=== PATIENT | male | born 1950 | race Caucasian/White ===

== ENCOUNTER 2019-05-23 15:33 | Inpatient (IN) | payer MEDICARE, OTHER ==
[~2019-05-23] VITALS: Ht 184.2 cm; Wt 88.3 kg
--- NOTE | 2019-05-23 16:17 | NUR ---
Pt states he has been wanting to kill himself for a couple days. Feels that he completely messed up his life after getting a DUI. States he won't be able to come back from this. patient is cooperative at this time. Patient reluctant to be here but not actively trying to leave.
[2019-05-23] MEDS ORDERED: NO HOME MEDS (16:38)
[2019-05-23 16:51] LABS: BASOPHILS # (AUTO) 0.1 X10'3 (0-0.2); BASOPHILS % (AUTO) 1.2 % (0-1); EOSINOPHILS # (AUTO) 0.2 X10'3 (0-0.9); EOSINOPHILS % (AUTO) 3.7 % (0-6); HEMATOCRIT 45.4 % (42.0-52.0); HEMOGLOBIN 15.8 g/dl (14.0-17.9); LYMPHOCYTES # (AUTO) 1.5 X10'3 (1.1-4.8); LYMPHOCYTES % (AUTO) 28.4 % (21-51); MEAN CORPUSCULAR HEMOGLOBIN 34.5 PG (27.0-31.0); MEAN CORPUSCULAR HGB CONC 34.8 g/dL (33.0-36.5); MEAN CORPUSCULAR VOLUME 99.2 FL (78-98); MEAN PLATELET VOLUME 6.7 FL (7.4-10.4); MONOCYTES # (AUTO) 0.7 X10'3 (0-0.9); MONOCYTES % (AUTO) 14.1 % (2-12); NEUTROPHILS # (AUTO) 2.7 X10'3 (1.8-7.7); NEUTROPHILS % (AUTO) 52.6 % (42-75); PLATELET COUNT 136 X10'3 (140-440); RED BLOOD COUNT 4.58 X10'6 (4.70-6.10); RED CELL DISTRIBUTION WIDTH 12.5 % (11.5-14.5); WHITE BLOOD COUNT 5.2 X10'3 (4.5-11.0)
[2019-05-23 17:04] LABS: ALANINE AMINOTRANSFERASE 41 U/L (12-78); ALBUMIN 3.5 G/DL (3.4-5.0); ALBUMIN/GLOBULIN RATIO 0.8 (1.1-1.5); ALKALINE PHOSPHATASE 77 IU/L (46-116); ANION GAP 9 (8-16); ASPARTATE AMINO TRANSFERASE 47 U/L (10-37); BILIRUBIN,TOTAL 0.8 MG/DL (0.1-1.0); BLOOD UREA NITROGEN 6 MG/DL (7-18); BUN/CREATININE RATIO 9.4 (5.4-32.0); CALCIUM 8.6 MG/DL (8.5-10.1); CHLORIDE 95 MMOL/L (99-107); CREATININE 0.64 MG/DL (0.60-1.10); ETHANOL 0.211 GM/DL (0.0-0.010); GLUCOSE 103 MG/DL (70-104); POTASSIUM 3.9 MMOL/L (3.5-5.1); SODIUM 128 MMOL/L (135-145); TOTAL CARBON DIOXIDE 24.5 MMOL/L (24-32); eGFR > 90 ML/MIN
[2019-05-23 17:20] LABS: URINE AMPHETAMINE SCREEN NEGATIVE (Neg); URINE BARBITUATE SCREEN NEGATIVE (Neg); URINE BENZODIAZEPINES SCREEN NEGATIVE (Neg); URINE CANNABINOID SCREEN NEGATIVE (Neg); URINE COCAINE SCREEN NEGATIVE (Neg); URINE METHADONE SCREEN NEGATIVE (Neg); URINE OPIATE SCREEN NEGATIVE (Neg); URINE PHENCYCLIDINE SCREEN NEGATIVE (Neg)
--- NOTE | 2019-05-23 17:30 | NUR ---
Patient is alseep, also see patient looking up at the ceiling.
--- NOTE | 2019-05-23 18:30 | NUR ---
patient eating dinner, states he does not know why he is here. states he wasn't going to hurt anyone and what he is going to do to himself is his business. Reluctant to be here but calm/cooperative and not actively trying to leave unit.
--- NOTE | 2019-05-23 19:30 | NUR ---
Patient is asleep, resiprations even and unlabored.
--- NOTE | 2019-05-23 21:31 | NUR ---
Assumed care of pt he is laying on his right side, eyes closed regular breathing present, will assess pt, report form previous nurse, no home meds
--- NOTE | 2019-05-23 22:30 | NUR ---
PT APPEARS TO BE SLEEPING, REGULAR BREATHING PRESENT
--- NOTE | 2019-05-23 23:30 | NUR ---
PT APPEARS TO BE ASLEEP, REGULAR BREATHING PRESENT
--- NOTE | 2019-05-23 23:33 | NUR ---
Patient's updated facesheet sent [facility].
--- NOTE | 2019-05-24 00:23 | NUR ---
PT IS SUPINE IN BED EYES CLOSED, APPEARS TO BE ASLEEP, NO S/S OF AGITATION
--- NOTE | 2019-05-24 01:16 | NUR ---
Note meggan in ED - 05/24/19 at 0118 by [email or web address] RCVD NOTE FROM PHARMACY ON NEED FOR PT FAMILY TO BRING IN HER 'HOME MEDS" OR TAKE ORDER OFF THE MAR IT IS A MED ERROR TO NOT GIVE THE MEDICATION
--- NOTE | 2019-05-24 01:25 | NUR ---
PT UP TO THE BATHROOM, NO S/S OF DISTRESS OBSERVED, CALM
[2019-05-24] MEDS ORDERED: haloperidol 5mg tablet PO PRN (01:50)
--- NOTE | 2019-05-24 02:25 | NUR ---
PT IS SUPINE IN BED, EYES CLOSED, APPEARS TO BE ASLEEP, REGULAR BREATHING PRESENT, NO TREMORS
--- NOTE | 2019-05-24 02:52 | NUR ---
PT GOT UP VERY UNSTEADY ON HIS FEET, OFFERED URINAL. HE DID NOT ACCEPT IT, HE WAS ABLE TO MAKE IT INTO THE BATHROOM AND BACK TO BED.
--- NOTE | 2019-05-24 03:35 | NUR ---
PT LAYING ON HIS BACK, REGULAR BREATHING PRESENT APPEARS TO BE ASLEEP
[2019-05-24] MEDS: LORazepam 1 MG tablet PO PRN ×3 (05:41→10:52)
--- NOTE | 2019-05-24 05:43 | NUR ---
PT HAD THE SHAKES, OFFERED ATIVAN, IT TOOK SOME CONVINCING TO GET HIM TO TAKE THE MEDICATION TO HELP HIM, HE WAS CONCERNED WITH THE COST, HE DID TAKE THEM, WAS VERY SHAKEY
--- NOTE | 2019-05-24 08:00 | NUR ---
Pt awake and up to the bathroom very shaky. Ativan given
--- NOTE | 2019-05-24 09:31 | NUR ---
Consulted with Dr Arevalo who ordered librium 75 mg PO once and 1 liter of fluid
[2019-05-24] MEDS ORDERED: chlordiazePOXIDE 25mg capsule PO ONE (09:35)
--- NOTE | 2019-05-24 09:56 | NUR ---
Chris initiated IV
--- NOTE | 2019-05-24 10:14 | NUR ---
pt is awake and has ns fluid running pt is doing alittle better and blood pressure is great. pt is hooked up to vital machine to keep an eye on pts heart since he is detoxing
--- NOTE | 2019-05-24 10:19 | NUR ---
pts heart rate is now at 151
[2019-05-24] MEDS: normal saline 1000ml 1,000 ML IV SCH ×2 (10:24→12:35)
--- NOTE | 2019-05-24 10:49 | NUR ---
brenna showed dr EKG and heart rate was in 160's and is aware of the situation and will evaluate him.
--- NOTE | 2019-05-24 11:05 | NUR ---
did two ekg's on pt pts heart rate is up to 162 the highest and it then drops down to low 90's
--- NOTE | 2019-05-24 11:08 | NUR ---
Notified charge nurse pt pulse continues to climb over 160 and then back to nineties. EKG shows Afib RVR
[2019-05-24 11:38] LABS: BASOPHILS # (AUTO) 0.1 X10'3 (0-0.2); EOSINOPHILS # (AUTO) 0.2 X10'3 (0-0.9); EOSINOPHILS % (AUTO) 3.2 % (0-6); HEMATOCRIT 46.7 % (42.0-52.0); HEMOGLOBIN 16.3 g/dl (14.0-17.9); LYMPHOCYTES # (AUTO) 1.2 X10'3 (1.1-4.8); LYMPHOCYTES % (AUTO) 23.4 % (21-51); MEAN CORPUSCULAR HEMOGLOBIN 34.6 PG (27.0-31.0); MEAN CORPUSCULAR HGB CONC 34.8 g/dL (33.0-36.5); MEAN CORPUSCULAR VOLUME 99.2 FL (78-98); MONOCYTES # (AUTO) 0.9 X10'3 (0-0.9); NEUTROPHILS # (AUTO) 2.8 X10'3 (1.8-7.7); NEUTROPHILS % (AUTO) 55.4 % (42-75); PLATELET COUNT 113 X10'3 (140-440); RED BLOOD COUNT 4.71 X10'6 (4.70-6.10); RED CELL DISTRIBUTION WIDTH 12.6 % (11.5-14.5); WHITE BLOOD COUNT 5.1 X10'3 (4.5-11.0)
[2019-05-24 11:55] LABS: ALBUMIN 3.1 G/DL (3.4-5.0); ANION GAP 8 (8-16); BLOOD UREA NITROGEN 9 MG/DL (7-18); BUN/CREATININE RATIO 12.2 (5.4-32.0); CALCIUM 8.8 MG/DL (8.5-10.1); CHLORIDE 102 MMOL/L (99-107); CREATININE 0.74 MG/DL (0.60-1.10); GLUCOSE 100 MG/DL (70-104); MAGNESIUM 1.6 MG/DL (1.5-2.4); SODIUM 136 MMOL/L (135-145); TOTAL CARBON DIOXIDE 26.1 MMOL/L (24-32); TROPONIN I < 0.04 NG/ML (0.0-0.05); eGFR > 90 ML/MIN
[2019-05-24] MEDS ORDERED: acetaminophen 325mg tablet PO PRN (12:15)
[2019-05-24] MEDS ORDERED: magnesium 2GM in 50ml NS 50 ML IV PRN (12:15)
[2019-05-24] MEDS ORDERED: potassium CL 10mEq/100ml bag 100 ML IV PRN ×2 (12:15)
[2019-05-24] MEDS ORDERED: magnesium 4gm in 100ml NS 100 ML IV PRN (12:15)
[2019-05-24] MEDS ORDERED: magnesium Cl slow-release 64mg tablet PO PRN (12:15)
[2019-05-24] MEDS ORDERED: magnesium hydroxide 30ml (MOM) UD suspension PO PRN (12:15)
[2019-05-24] MEDS ORDERED: thiamine 100mg/ml 2ml inj. IV ONE (12:15)
[2019-05-24] MEDS ORDERED: dextrose 50%-water 50ml dispensing syringe IV PRN (12:15)
[2019-05-24] MEDS ORDERED: mag hydrox/Alum hydrox/simeth 30ml oral suspension PO PRN (12:15)
[2019-05-24] MEDS ORDERED: potassium Cl 20 mEq SR tablet PO PRN (12:15)
[2019-05-24] MEDS: multivitamins, therapeutics tablet PO SCH (12:50)
[2019-05-24] MEDS: thiamine 100mg tablet PO SCH (12:50)
[2019-05-24] MEDS: folic acid 1mg tablet PO SCH (12:50)
[2019-05-24 15:00] VITALS: BP 152/79
[2019-05-24] MEDS: LORazepam 2 mg/ml vial IV PRN ×3 (16:09→20:34)
[2019-05-24] MEDS: K and/or MAG REPLACEMENT MC SCH (16:29)
--- NOTE | 2019-05-24 16:30 | NUR ---
Line of Site Sitter at Bedside
--- NOTE | 2019-05-24 17:39 | NUR ---
Pt is not currently able to give Medical History. He States that He has [place] medical.
[2019-05-24 18:00] VITALS: BP 131/65
--- NOTE | 2019-05-24 18:54 | NUR ---
Patient in room PCU 3017. I have received report from Maria E VELARDE and had the opportunity to ask questions and assume patient care.
[2019-05-24 22:00] VITALS: BP 141/84
[2019-05-25] MEDS: LORazepam 2 mg/ml vial IV PRN ×6 (00:35→23:34)
--- NOTE | 2019-05-25 01:27 | NUR ---
Paged Dr Monsalve, Here on a 72 hour hold ETOH withdrawal. Was getting Normal Saline at 125ml in ER the order has timed out and was not restarted. Do you want to continue the fluids at 125ml/hr? Maurice ext [phone].
[2019-05-25 02:00] VITALS: BP 133/77
[2019-05-25] MEDS: normal saline 1000ml 1,000 ML IV SCH ×3 (02:53→18:45)
--- NOTE | 2019-05-25 03:01 | NUR ---
Spoke with Dr Monsalve, requested normal saline to be restarted at 125ml's per hour.
[2019-05-25 06:00] VITALS: BP 150/89
--- NOTE | 2019-05-25 06:27 | NUR ---
Problems reprioritized. Patient report given, questions answered & plan of care reviewed with Cristóbal VELARDE .
[2019-05-25 06:44] LABS: EOSINOPHILS # (AUTO) 0.2 X10'3 (0-0.9); EOSINOPHILS % (AUTO) 5.3 % (0-6); HEMATOCRIT 43.4 % (42.0-52.0); HEMOGLOBIN 14.9 g/dl (14.0-17.9); LYMPHOCYTES # (AUTO) 1.2 X10'3 (1.1-4.8); LYMPHOCYTES % (AUTO) 28.3 % (21-51); MEAN CORPUSCULAR HEMOGLOBIN 34.8 PG (27.0-31.0); MEAN CORPUSCULAR HGB CONC 34.3 g/dL (33.0-36.5); MEAN CORPUSCULAR VOLUME 101.5 FL (78-98); MEAN PLATELET VOLUME 7.1 FL (7.4-10.4); MONOCYTES # (AUTO) 0.8 X10'3 (0-0.9); MONOCYTES % (AUTO) 18.5 % (2-12); NEUTROPHILS # (AUTO) 1.9 X10'3 (1.8-7.7); NEUTROPHILS % (AUTO) 46.9 % (42-75); PLATELET COUNT 95 X10'3 (140-440); RED BLOOD COUNT 4.28 X10'6 (4.70-6.10); RED CELL DISTRIBUTION WIDTH 12.6 % (11.5-14.5); WHITE BLOOD COUNT 4.1 X10'3 (4.5-11.0)
[2019-05-25 06:56] LABS: ALANINE AMINOTRANSFERASE 32 U/L (12-78); ALBUMIN 2.9 G/DL (3.4-5.0); ALBUMIN/GLOBULIN RATIO 0.8 (1.1-1.5); ALKALINE PHOSPHATASE 60 IU/L (46-116); ANION GAP 8 (8-16); ASPARTATE AMINO TRANSFERASE 35 U/L (10-37); BILIRUBIN,TOTAL 1.7 MG/DL (0.1-1.0); BLOOD UREA NITROGEN 10 MG/DL (7-18); BUN/CREATININE RATIO 17.5 (5.4-32.0); CALCIUM 8.7 MG/DL (8.5-10.1); CHLORIDE 106 MMOL/L (99-107); CREATININE 0.57 MG/DL (0.60-1.10); GLUCOSE 91 MG/DL (70-104); MAGNESIUM 1.7 MG/DL (1.5-2.4); PHOSPHORUS 3.4 MG/DL (2.3-4.5); POTASSIUM 3.7 MMOL/L (3.5-5.1); SODIUM 140 MMOL/L (135-145); TOTAL CARBON DIOXIDE 25.8 MMOL/L (24-32); TOTAL PROTEIN 6.7 G/DL (6.4-8.2); eGFR > 90 ML/MIN
[2019-05-25] MEDS: thiamine 100mg tablet PO SCH (07:34)
[2019-05-25] MEDS: enoxaparin 40mg/0.4ml syringe SQ SCH (07:34)
[2019-05-25] MEDS: multivitamins, therapeutics tablet PO SCH (07:34)
[2019-05-25] MEDS: folic acid 1mg tablet PO SCH (07:34)
[2019-05-25 07:44] LABS: PLATELET ESTIMATE DECREASED; TOTAL CELLS COUNTED 100
[2019-05-25] MEDS ORDERED: folic acid inj. 2 MG, thiamine inj. 100 MG, MVI, adult No.4 with vit. K 10 ML in dextro... IV SCH ×4 (08:00)
[2019-05-25 11:00] VITALS: BP 143/76
--- NOTE | 2019-05-25 11:27 | NUR ---
PAGER ID: [phone] MESSAGE: [id number] Michael Delongricks: [phone] will need to be renewed at 1230. PRACHI Ambrocio ext [phone]
[2019-05-25] MEDS ORDERED: chlordiazePOXIDE 25mg capsule PO PRN (11:35)
[2019-05-25 18:00] VITALS: BP 158/80
--- NOTE | 2019-05-25 18:15 | NUR ---
Problems reprioritized. Patient report given, questions answered & plan of care reviewed with PRACHI Guerrero.
--- NOTE | 2019-05-25 18:33 | NUR ---
Patient in room PCU 3017. I have received report from Cristóbal VELARDE and had the opportunity to ask questions and assume patient care.
[2019-05-25 22:00] VITALS: BP 164/92
[2019-05-26] VITALS (7 sets, daily range): BP systolic 128–136; BP diastolic 74–100
[2019-05-26] MEDS: LORazepam 2 mg/ml vial IV PRN ×4 (00:06→14:34)
[2019-05-26] MEDS: haloperidol lactate 5mg/ml inj IM PRN (00:14)
--- NOTE | 2019-05-26 00:34 | NUR ---
PAGER ID: [phone] MESSAGE: [phone] Michael Jimenez was admitted for ETOH. He has been agitated and aggressive this shift. We have given ativan which was ineffective and Haldol 5mg IM which was also ineffective. -Yolanda VELARDE [phone]
--- NOTE | 2019-05-26 01:00 | NUR ---
Pt has been pulling at IV line, agitated, and climbing out of bed. Pts behavior has escalated despite medication for agitation. Pt has started to strike out at staff and scratching. notified.
--- NOTE | 2019-05-26 01:32 | NUR ---
Spoke with Dr Monsalve regarding pts behaviors. ordered soft wrist restraints.
[2019-05-26] MEDS: normal saline 1000ml 1,000 ML IV SCH ×3 (03:28→20:37)
[2019-05-26 06:10] LABS: BASOPHILS % (AUTO) 0.7 % (0-1); EOSINOPHILS # (AUTO) 0.1 X10'3 (0-0.9); EOSINOPHILS % (AUTO) 2.7 % (0-6); HEMATOCRIT 41.9 % (42.0-52.0); HEMOGLOBIN 14.7 g/dl (14.0-17.9); LYMPHOCYTES # (AUTO) 1.3 X10'3 (1.1-4.8); LYMPHOCYTES % (AUTO) 22.8 % (21-51); MEAN CORPUSCULAR HEMOGLOBIN 34.6 PG (27.0-31.0); MEAN CORPUSCULAR VOLUME 99.1 FL (78-98); MEAN PLATELET VOLUME 6.8 FL (7.4-10.4); MONOCYTES # (AUTO) 0.6 X10'3 (0-0.9); MONOCYTES % (AUTO) 11.3 % (2-12); NEUTROPHILS # (AUTO) 3.4 X10'3 (1.8-7.7); NEUTROPHILS % (AUTO) 62.5 % (42-75); PLATELET COUNT 101 X10'3 (140-440); RED BLOOD COUNT 4.23 X10'6 (4.70-6.10); RED CELL DISTRIBUTION WIDTH 12.3 % (11.5-14.5); WHITE BLOOD COUNT 5.5 X10'3 (4.5-11.0)
[2019-05-26 06:27] LABS: ALANINE AMINOTRANSFERASE 39 U/L (12-78); ALBUMIN 2.8 G/DL (3.4-5.0); ALBUMIN/GLOBULIN RATIO 0.8 (1.1-1.5); ALKALINE PHOSPHATASE 58 IU/L (46-116); ANION GAP 10 (8-16); ASPARTATE AMINO TRANSFERASE 47 U/L (10-37); BILIRUBIN,TOTAL 1.7 MG/DL (0.1-1.0); BLOOD UREA NITROGEN 5 MG/DL (7-18); BUN/CREATININE RATIO 7.5 (5.4-32.0); CALCIUM 7.9 MG/DL (8.5-10.1); CHLORIDE 103 MMOL/L (99-107); CREATININE 0.67 MG/DL (0.60-1.10); GLUCOSE 116 MG/DL (70-104); MAGNESIUM 1.2 MG/DL (1.5-2.4); POTASSIUM 3.1 MMOL/L (3.5-5.1); SODIUM 136 MMOL/L (135-145); TOTAL CARBON DIOXIDE 23.3 MMOL/L (24-32); TOTAL PROTEIN 6.5 G/DL (6.4-8.2); eGFR > 90 ML/MIN
--- NOTE | 2019-05-26 06:39 | NUR ---
Patient in room PCU 3017. I have received report from Yolanda and had the opportunity to ask questions and assume patient care.
--- NOTE | 2019-05-26 06:40 | NUR ---
Problems reprioritized. Patient report given, questions answered & plan of care reviewed with Anne VELARDE.
[2019-05-26] MEDS: thiamine 100mg tablet PO SCH (07:41)
[2019-05-26] MEDS: folic acid 1mg tablet PO SCH (07:41)
[2019-05-26] MEDS: potassium Cl 20 mEq SR tablet PO PRN ×3 (07:41→19:45)
[2019-05-26] MEDS: multivitamins, therapeutics tablet PO SCH (07:42)
[2019-05-26] MEDS: enoxaparin 40mg/0.4ml syringe SQ SCH (07:44)
[2019-05-26] MEDS: K and/or MAG REPLACEMENT MC SCH (08:00)
[2019-05-26] MEDS: chlordiazePOXIDE 25mg capsule PO SCH ×2 (16:27→19:44)
--- NOTE | 2019-05-26 18:13 | NUR ---
Problems reprioritized. Patient report given, questions answered & plan of care reviewed with Yolanda.
[2019-05-27 02:00] VITALS: BP 150/78
[2019-05-27] MEDS: chlordiazePOXIDE 25mg capsule PO SCH ×4 (02:27→20:10)
[2019-05-27] MEDS: normal saline 1000ml 1,000 ML IV SCH ×3 (02:45→19:24)
[2019-05-27 05:35] LABS: BASOPHILS # (AUTO) 0.1 X10'3 (0-0.2); BASOPHILS % (AUTO) 1.3 % (0-1); EOSINOPHILS # (AUTO) 0.2 X10'3 (0-0.9); EOSINOPHILS % (AUTO) 4.5 % (0-6); HEMATOCRIT 42.7 % (42.0-52.0); HEMOGLOBIN 14.8 g/dl (14.0-17.9); LYMPHOCYTES # (AUTO) 1.5 X10'3 (1.1-4.8); LYMPHOCYTES % (AUTO) 29.8 % (21-51); MEAN CORPUSCULAR HEMOGLOBIN 34.3 PG (27.0-31.0); MEAN CORPUSCULAR HGB CONC 34.6 g/dL (33.0-36.5); MEAN CORPUSCULAR VOLUME 99.1 FL (78-98); MONOCYTES # (AUTO) 0.6 X10'3 (0-0.9); MONOCYTES % (AUTO) 13.1 % (2-12); NEUTROPHILS # (AUTO) 2.5 X10'3 (1.8-7.7); NEUTROPHILS % (AUTO) 51.3 % (42-75); PLATELET COUNT 107 X10'3 (140-440); RED BLOOD COUNT 4.31 X10'6 (4.70-6.10); RED CELL DISTRIBUTION WIDTH 12.5 % (11.5-14.5); WHITE BLOOD COUNT 4.9 X10'3 (4.5-11.0)
[2019-05-27 06:00] VITALS: BP 155/87
[2019-05-27 06:04] LABS: ALANINE AMINOTRANSFERASE 33 U/L (12-78); ALBUMIN 2.8 G/DL (3.4-5.0); ALBUMIN/GLOBULIN RATIO 0.7 (1.1-1.5); ALKALINE PHOSPHATASE 60 IU/L (46-116); ANION GAP 9 (8-16); ASPARTATE AMINO TRANSFERASE 52 U/L (10-37); BILIRUBIN,TOTAL 1.6 MG/DL (0.1-1.0); BLOOD UREA NITROGEN 4 MG/DL (7-18); BUN/CREATININE RATIO 7.3 (5.4-32.0); CALCIUM 8.2 MG/DL (8.5-10.1); CHLORIDE 105 MMOL/L (99-107); CREATININE 0.55 MG/DL (0.60-1.10); GLUCOSE 82 MG/DL (70-104); MAGNESIUM 1.5 MG/DL (1.5-2.4); PHOSPHORUS 3.3 MG/DL (2.3-4.5); POTASSIUM 3.8 MMOL/L (3.5-5.1); SODIUM 139 MMOL/L (135-145); TOTAL CARBON DIOXIDE 24.7 MMOL/L (24-32); TOTAL PROTEIN 6.8 G/DL (6.4-8.2); eGFR > 90 ML/MIN
--- NOTE | 2019-05-27 06:20 | NUR ---
Patient in room PCU 3017. I have received report from Yolanda VELARDE and had the opportunity to ask questions and assume patient care.
--- NOTE | 2019-05-27 06:22 | NUR ---
Problems reprioritized. Patient report given, questions answered & plan of care reviewed with Jeniffer VELARDE.
[2019-05-27] MEDS: folic acid 1mg tablet PO SCH (07:44)
[2019-05-27] MEDS: thiamine 100mg tablet PO SCH (07:44)
[2019-05-27] MEDS: enoxaparin 40mg/0.4ml syringe SQ SCH (07:45)
[2019-05-27] MEDS: multivitamins, therapeutics tablet PO SCH (07:45)
[2019-05-27] MEDS: K and/or MAG REPLACEMENT MC SCH (08:00)
[2019-05-27 11:00] VITALS: BP 155/95
[2019-05-27 15:00] VITALS: BP 146/82
--- NOTE | 2019-05-27 18:02 | NUR ---
Student documentation: I have reviewed and agree with all interventions, assessments performed and documented by Angie Student RN.
--- NOTE | 2019-05-27 18:30 | NUR ---
Problems reprioritized. Patient report given, questions answered & plan of care reviewed with Mariano VELARDE. Patient stable at time of transfer of care.
--- NOTE | 2019-05-27 18:35 | NUR ---
Patient in room PCU 3017b. I have received report from PRACHI Swift and had the opportunity to ask questions and assume patient care. Patient asleep for bedside report. NS infusing at 125 mL/hr per provider order. On room air. Sitter at bedside. Will continue to monitor closely.
[2019-05-27 18:41] VITALS: BP 153/82
[2019-05-27 23:00] VITALS: BP 131/69
[2019-05-28] MEDS: chlordiazePOXIDE 25mg capsule PO SCH ×4 (02:35→19:28)
[2019-05-28 03:00] VITALS: BP 155/84
[2019-05-28] MEDS: normal saline 1000ml 1,000 ML IV SCH ×3 (03:26→18:45)
--- NOTE | 2019-05-28 03:26 | NUR ---
NS bag unable to scan. Administered manually.
[2019-05-28 04:58] LABS: BASOPHILS # (AUTO) 0.1 X10'3 (0-0.2); EOSINOPHILS # (AUTO) 0.3 X10'3 (0-0.9); EOSINOPHILS % (AUTO) 5.9 % (0-6); HEMATOCRIT 41.3 % (42.0-52.0); HEMOGLOBIN 14.3 g/dl (14.0-17.9); LYMPHOCYTES # (AUTO) 1.4 X10'3 (1.1-4.8); LYMPHOCYTES % (AUTO) 27.7 % (21-51); MEAN CORPUSCULAR HEMOGLOBIN 34.3 PG (27.0-31.0); MEAN CORPUSCULAR HGB CONC 34.7 g/dL (33.0-36.5); MEAN CORPUSCULAR VOLUME 98.9 FL (78-98); MEAN PLATELET VOLUME 7.3 FL (7.4-10.4); MONOCYTES # (AUTO) 0.6 X10'3 (0-0.9); MONOCYTES % (AUTO) 12.4 % (2-12); NEUTROPHILS # (AUTO) 2.7 X10'3 (1.8-7.7); PLATELET COUNT 115 X10'3 (140-440); RED BLOOD COUNT 4.18 X10'6 (4.70-6.10); RED CELL DISTRIBUTION WIDTH 12.3 % (11.5-14.5); WHITE BLOOD COUNT 5.1 X10'3 (4.5-11.0)
[2019-05-28 05:20] LABS: ALANINE AMINOTRANSFERASE 26 U/L (12-78); ALBUMIN 2.6 G/DL (3.4-5.0); ALBUMIN/GLOBULIN RATIO 0.7 (1.1-1.5); ALKALINE PHOSPHATASE 63 IU/L (46-116); ANION GAP 10 (8-16); ASPARTATE AMINO TRANSFERASE 38 U/L (10-37); BILIRUBIN,TOTAL 1.4 MG/DL (0.1-1.0); BLOOD UREA NITROGEN 7 MG/DL (7-18); BUN/CREATININE RATIO 11.7 (5.4-32.0); CALCIUM 8.3 MG/DL (8.5-10.1); CHLORIDE 104 MMOL/L (99-107); GLUCOSE 91 MG/DL (70-104); MAGNESIUM 1.4 MG/DL (1.5-2.4); POTASSIUM 3.4 MMOL/L (3.5-5.1); SODIUM 137 MMOL/L (135-145); TOTAL CARBON DIOXIDE 23.2 MMOL/L (24-32); TOTAL PROTEIN 6.3 G/DL (6.4-8.2); eGFR > 90 ML/MIN
[2019-05-28 06:00] VITALS: BP 141/93
--- NOTE | 2019-05-28 06:13 | NUR ---
Problems reprioritized. Patient report given, questions answered & plan of care reviewed with PRACHI Swift.
--- NOTE | 2019-05-28 06:14 | NUR ---
Patient in room PCU 3017. I have received report from Mariano VELARDE and had the opportunity to ask questions and assume patient care.
[2019-05-28] MEDS: folic acid 1mg tablet PO SCH (08:06)
[2019-05-28] MEDS: thiamine 100mg tablet PO SCH (08:06)
[2019-05-28] MEDS: enoxaparin 40mg/0.4ml syringe SQ SCH (08:06)
[2019-05-28] MEDS: multivitamins, therapeutics tablet PO SCH (08:06)
[2019-05-28] MEDS ORDERED: magnesium 2GM in 50ml NS 50 ML IV PRN (08:45)
[2019-05-28] MEDS ORDERED: potassium Cl 20 mEq SR tablet PO PRN (08:45)
[2019-05-28] MEDS ORDERED: magnesium 4gm in 100ml NS 100 ML IV PRN (08:45)
[2019-05-28] MEDS ORDERED: potassium CL 10mEq/100ml bag 100 ML IV PRN (08:45)
[2019-05-28] MEDS: K and/or MAG REPLACEMENT MC SCH (08:54)
[2019-05-28] MEDS: potassium Cl 20 mEq SR tablet PO PRN ×3 (09:14→19:28)
[2019-05-28] MEDS: magnesium Cl slow-release 64mg tablet PO PRN ×2 (09:14→19:28)
[2019-05-28 11:00] VITALS: BP 141/96
[2019-05-28 15:23] VITALS: BP 133/69
--- NOTE | 2019-05-28 18:12 | NUR ---
Patient in room PCU 3012V. I have received report from PRACHI Swift and had the opportunity to ask questions and assume patient care. Patient asleep for bedside report. Sitter at bedside. Will continue to monitor closely.
--- NOTE | 2019-05-28 18:30 | NUR ---
Problems reprioritized. Patient report given, questions answered & plan of care reviewed with Mariano VELARDE. Patient stable at time of transfer of care.
[2019-05-28 19:00] VITALS: BP 131/71
[2019-05-28 22:59] VITALS: BP 135/82
[2019-05-29] MEDS: chlordiazePOXIDE 25mg capsule PO SCH ×4 (02:21→19:42)
[2019-05-29] MEDS: normal saline 1000ml 1,000 ML IV SCH ×4 (02:45→23:07)
[2019-05-29 03:00] VITALS: BP 134/88
[2019-05-29 06:00] VITALS: BP 143/85
--- NOTE | 2019-05-29 06:00 | NUR ---
Patient in room PCU 3017. I have received report from Paloma VELARDE and had the opportunity to ask questions and assume patient care.
[2019-05-29 06:36] LABS: BASOPHILS # (AUTO) 0.1 X10'3 (0-0.2); BASOPHILS % (AUTO) 1.1 % (0-1); EOSINOPHILS # (AUTO) 0.4 X10'3 (0-0.9); EOSINOPHILS % (AUTO) 6.9 % (0-6); HEMATOCRIT 40.9 % (42.0-52.0); HEMOGLOBIN 14.2 g/dl (14.0-17.9); LYMPHOCYTES # (AUTO) 1.3 X10'3 (1.1-4.8); LYMPHOCYTES % (AUTO) 24.4 % (21-51); MEAN CORPUSCULAR HEMOGLOBIN 34.6 PG (27.0-31.0); MEAN CORPUSCULAR HGB CONC 34.8 g/dL (33.0-36.5); MEAN CORPUSCULAR VOLUME 99.3 FL (78-98); MEAN PLATELET VOLUME 7.1 FL (7.4-10.4); MONOCYTES # (AUTO) 0.8 X10'3 (0-0.9); MONOCYTES % (AUTO) 14.5 % (2-12); NEUTROPHILS # (AUTO) 2.8 X10'3 (1.8-7.7); NEUTROPHILS % (AUTO) 53.1 % (42-75); PLATELET COUNT 118 X10'3 (140-440); RED BLOOD COUNT 4.12 X10'6 (4.70-6.10); RED CELL DISTRIBUTION WIDTH 12.5 % (11.5-14.5); WHITE BLOOD COUNT 5.2 X10'3 (4.5-11.0)
--- NOTE | 2019-05-29 06:42 | NUR ---
Problems reprioritized. Patient report given, questions answered & plan of care reviewed with PRACHI Ambrocio and SN Paloma. Addendum: 05/29/19 at 0643 by Gui Castaneda RN Correction- PRACHI Leo.
[2019-05-29 06:55] LABS: ALANINE AMINOTRANSFERASE 31 U/L (12-78); ALBUMIN 2.6 G/DL (3.4-5.0); ALBUMIN/GLOBULIN RATIO 0.7 (1.1-1.5); ANION GAP 9 (8-16); ASPARTATE AMINO TRANSFERASE 36 U/L (10-37); BILIRUBIN,TOTAL 1.4 MG/DL (0.1-1.0); BLOOD UREA NITROGEN 5 MG/DL (7-18); BUN/CREATININE RATIO 7.4 (5.4-32.0); CALCIUM 8.4 MG/DL (8.5-10.1); CHLORIDE 104 MMOL/L (99-107); CREATININE 0.68 MG/DL (0.60-1.10); GLUCOSE 83 MG/DL (70-104); MAGNESIUM 1.4 MG/DL (1.5-2.4); SODIUM 137 MMOL/L (135-145); TOTAL CARBON DIOXIDE 23.9 MMOL/L (24-32); TOTAL PROTEIN 6.5 G/DL (6.4-8.2); eGFR > 90 ML/MIN
[2019-05-29 07:10] LABS: ALKALINE PHOSPHATASE 62 IU/L (46-116)
[2019-05-29] MEDS: enoxaparin 40mg/0.4ml syringe SQ SCH (07:39)
[2019-05-29] MEDS: folic acid 1mg tablet PO SCH (07:39)
[2019-05-29] MEDS: thiamine 100mg tablet PO SCH (07:39)
[2019-05-29] MEDS: multivitamins, therapeutics tablet PO SCH (07:39)
[2019-05-29] MEDS: K and/or MAG REPLACEMENT MC SCH (08:00)
[2019-05-29 11:00] VITALS: BP 154/81
[2019-05-29] MEDS: ondansetron/PF 4mg/2ml inj IV PRN (11:58)
--- NOTE | 2019-05-29 12:15 | NUR ---
Initial: Pt admit with SI on a 5150 with claire DTs and paroxysmal A. fib. Pt documented as A/O x 3 with episodes of confusion, with a sitter and pending mental health evaluation. Per MD notes pt with significant tremors resulting in an inability to feed self. Noted that pt independent at meal times and not receiving any adaptive-burt. Pt on a regular diet documented with average 25-50% PO intake with refusal of dinner last night not meeting nutrient needs. Tremors are now significantly improved and pt able to feed himself per MD notes. Pt documented with 75% PO intake at breakfast this morning meeting nutrient needs. No nutrition intervention at this time given improvement of PO intake with improvement of tremors. Pt on EtOH w/d protocol which includes routine Thiamine, Folic acid, and MVI. LBM 05/24, pt with MoM PRN not yet given. D/w dietary to send prunes with next meal tray. Will follow closely and monitor need for nutrition intervention. Recommendations: 1) Continue regular diet 2) Monitor need for adaptive-burt/assistance with feeding if tremors resume 3) Monitor need for ONS 4) Continue Thiamine, Folic Acid, MVI given EtOH hx 5) Routine bowel care 6) Wt per rx Addendum: 05/29/19 at [address] Amended: Links added.
[2019-05-29] MEDS: acetaminophen 325mg tablet PO PRN (13:23)
[2019-05-29] MEDS: LORazepam 2 mg/ml vial IV PRN (13:24)
[2019-05-29] MEDS: magnesium Cl slow-release 64mg tablet PO PRN (14:52)
[2019-05-29 15:00] VITALS: BP 166/88
--- NOTE | 2019-05-29 18:21 | NUR ---
Patient in room PCU 3015g. I have received report from PRACHI Leo and had the opportunity to ask questions and assume patient care. Patient awake for bedside report and oriented to person and time only. States, "I keep thinking I am at home." Reoriented patient to surroundings. Sitter remains at bedside. Will continue to monitor closely.
--- NOTE | 2019-05-29 18:30 | NUR ---
Problems reprioritized. Patient report given, questions answered & plan of care reviewed with Paloma VELARDE.
[2019-05-29 19:00] VITALS: BP 178/82
[2019-05-29 23:00] VITALS: BP 155/94
[2019-05-30] MEDS: chlordiazePOXIDE 25mg capsule PO SCH ×4 (01:43→20:18)
[2019-05-30] MEDS: magnesium Cl slow-release 64mg tablet PO PRN (01:43)
[2019-05-30] MEDS: LORazepam 2 mg/ml vial IV PRN ×6 (02:14→21:17)
--- NOTE | 2019-05-30 02:38 | NUR ---
Patient continues to experience auditory and visual hallucinations. When administering 2nd dose of slow mag for replacement and scheduled 0200 dose of Librium, patient woke up very confused and stated, "Get out, you're not real." Informed patient that I was, indeed, real and had been his nurse for the past three nights. Attempted to use therapeutic communication and reorient patient to time, place, and events. After several minutes patient agreed to take medications and stated, "Go away, and never come back." 4 mg Ativan administered there after. Sitter in room. Will continue to monitor closely.
[2019-05-30 02:50] VITALS: BP 144/85
[2019-05-30 05:24] LABS: BASOPHILS % (AUTO) 0.7 % (0-1); EOSINOPHILS # (AUTO) 0.2 X10'3 (0-0.9); HEMATOCRIT 40.3 % (42.0-52.0); HEMOGLOBIN 13.9 g/dl (14.0-17.9); LYMPHOCYTES # (AUTO) 1.1 X10'3 (1.1-4.8); LYMPHOCYTES % (AUTO) 24.2 % (21-51); MEAN CORPUSCULAR HEMOGLOBIN 34.5 PG (27.0-31.0); MEAN CORPUSCULAR HGB CONC 34.6 g/dL (33.0-36.5); MEAN CORPUSCULAR VOLUME 99.6 FL (78-98); MONOCYTES # (AUTO) 0.6 X10'3 (0-0.9); MONOCYTES % (AUTO) 14.4 % (2-12); NEUTROPHILS # (AUTO) 2.5 X10'3 (1.8-7.7); NEUTROPHILS % (AUTO) 55.7 % (42-75); PLATELET COUNT 115 X10'3 (140-440); RED BLOOD COUNT 4.04 X10'6 (4.70-6.10); RED CELL DISTRIBUTION WIDTH 12.4 % (11.5-14.5); WHITE BLOOD COUNT 4.5 X10'3 (4.5-11.0)
[2019-05-30 05:40] LABS: ALANINE AMINOTRANSFERASE 27 U/L (12-78); ALBUMIN 2.7 G/DL (3.4-5.0); ALBUMIN/GLOBULIN RATIO 0.7 (1.1-1.5); ALKALINE PHOSPHATASE 67 IU/L (46-116); ANION GAP 9 (8-16); ASPARTATE AMINO TRANSFERASE 34 U/L (10-37); BILIRUBIN,TOTAL 1.2 MG/DL (0.1-1.0); BLOOD UREA NITROGEN 5 MG/DL (7-18); BUN/CREATININE RATIO 8.3 (5.4-32.0); CALCIUM 8.1 MG/DL (8.5-10.1); CHLORIDE 102 MMOL/L (99-107); GLUCOSE 100 MG/DL (70-104); MAGNESIUM 1.6 MG/DL (1.5-2.4); POTASSIUM 3.7 MMOL/L (3.5-5.1); SODIUM 137 MMOL/L (135-145); TOTAL CARBON DIOXIDE 26.3 MMOL/L (24-32); TOTAL PROTEIN 6.7 G/DL (6.4-8.2); eGFR > 90 ML/MIN
[2019-05-30 06:00] VITALS: BP 148/87
--- NOTE | 2019-05-30 06:00 | NUR ---
Patient in room [place] [address]. I have received report from Genet VELARDE and had the opportunity to ask questions and assume patient care. Addendum: 05/30/19 at 0709 by Ahmet Win RN Correction: wrong NOC NOD Patient in room [place] [address]. I have received report from Paloma VELARDE and had the opportunity to ask questions and assume patient care.
--- NOTE | 2019-05-30 06:18 | NUR ---
Problems reprioritized. Patient report given, questions answered & plan of care reviewed with PRACHI Alexander.
[2019-05-30] MEDS: enoxaparin 40mg/0.4ml syringe SQ SCH (08:00)
[2019-05-30] MEDS: K and/or MAG REPLACEMENT MC SCH (08:00)
[2019-05-30] MEDS: multivitamins, therapeutics tablet PO SCH (08:46)
[2019-05-30] MEDS: thiamine 100mg tablet PO SCH (08:46)
[2019-05-30] MEDS: folic acid 1mg tablet PO SCH (08:46)
[2019-05-30] MEDS: normal saline 1000ml 1,000 ML IV SCH (10:46)
[2019-05-30 11:00] VITALS: BP 158/87
[2019-05-30] MEDS: dextrose 5%-normal saline 1,000 ML IV SCH ×2 (12:00→20:18)
--- NOTE | 2019-05-30 12:29 | NUR ---
F/u: Pt to be receiving Ensure Enlive TID per MD to optimize PO intake. Discussed meals and tremors with bedside RN. RN reports pt is minimal assist by sitter with meals however continues with tremors. RN agrees to sippy cup and weighted utensils to help pt feed self while experiencing tremors, d/w dietary. Will continue to follow. Initial: Pt admit with SI on a 5150 with claire DTs and paroxysmal A. fib. Pt documented as A/O x 3 with episodes of confusion, with a sitter and pending mental health evaluation. Per MD notes pt with significant tremors resulting in an inability to feed self. Noted that pt independent at meal times and not receiving any adaptive-burt. Pt on a regular diet documented with average 25-50% PO intake with refusal of dinner last night not meeting nutrient needs. Tremors are now significantly improved and pt able to feed himself per MD notes. Pt documented with 75% PO intake at breakfast this morning meeting nutrient needs. No nutrition intervention at this time given improvement of PO intake with improvement of tremors. Pt on EtOH w/d protocol which includes routine Thiamine, Folic acid, and MVI. LBM 05/24, pt with MoM PRN not yet given. D/w dietary to send prunes with next meal tray. Will follow closely and monitor need for nutrition intervention. Recommendations: 1) Continue regular diet 2) Adaptive-burt and sippy cup while pt experiencing tremors 3) Ensure Enlive TID per MD 4) Continue Thiamine, Folic Acid, MVI given EtOH hx 5) Routine bowel care 6) Wt per rx Addendum: 05/30/19 at [address] Amended: Links added.
[2019-05-30] MEDS: lactose-reduced food (Ensure Enlive) - 237ml bottle PO SCH ×2 (13:00→18:00)
[2019-05-30 15:00] VITALS: BP 135/73
[2019-05-30 18:00] VITALS: BP 129/69
--- NOTE | 2019-05-30 18:00 | NUR ---
Problems reprioritized. Patient report given, questions answered & plan of care reviewed with Petr VELARDE.
--- NOTE | 2019-05-30 18:15 | NUR ---
Patient in room PCU 3017B. I have received report from PRACHI Alexander and had the opportunity to ask questions and assume patient care. Pt is sleeping and is in 1799 and 5150 suicide watch. Sitter is by bedside
[2019-05-30 22:00] VITALS: BP 139/76
[2019-05-31] VITALS (8 sets, daily range): BP systolic 104–166; BP diastolic 54–78
[2019-05-31] MEDS: LORazepam 2 mg/ml vial IV PRN (02:56)
[2019-05-31] MEDS: dextrose 5%-normal saline 1,000 ML IV SCH ×3 (04:00→15:27)
--- NOTE | 2019-05-31 06:15 | NUR ---
Patient in room PCU 3017. I have received report from PRACHI Humphreys and had the opportunity to ask questions and assume patient care.
--- NOTE | 2019-05-31 06:16 | NUR ---
Problems reprioritized. Patient report given, questions answered & plan of care reviewed with PRACHI Gautam.
[2019-05-31 06:25] LABS: BASOPHILS % (AUTO) 0.9 % (0-1); EOSINOPHILS # (AUTO) 0.3 X10'3 (0-0.9); EOSINOPHILS % (AUTO) 5.9 % (0-6); HEMATOCRIT 42.6 % (42.0-52.0); LYMPHOCYTES # (AUTO) 0.9 X10'3 (1.1-4.8); LYMPHOCYTES % (AUTO) 19.9 % (21-51); MEAN CORPUSCULAR HEMOGLOBIN 34.5 PG (27.0-31.0); MEAN CORPUSCULAR HGB CONC 35.3 g/dL (33.0-36.5); MEAN CORPUSCULAR VOLUME 97.8 FL (78-98); MEAN PLATELET VOLUME 7.6 FL (7.4-10.4); MONOCYTES # (AUTO) 0.8 X10'3 (0-0.9); MONOCYTES % (AUTO) 16.3 % (2-12); NEUTROPHILS # (AUTO) 2.7 X10'3 (1.8-7.7); PLATELET COUNT 125 X10'3 (140-440); RED BLOOD COUNT 4.36 X10'6 (4.70-6.10); RED CELL DISTRIBUTION WIDTH 12.3 % (11.5-14.5); WHITE BLOOD COUNT 4.7 X10'3 (4.5-11.0)
[2019-05-31 06:42] LABS: ALANINE AMINOTRANSFERASE 27 U/L (12-78); ALBUMIN 2.7 G/DL (3.4-5.0); ALBUMIN/GLOBULIN RATIO 0.6 (1.1-1.5); ALKALINE PHOSPHATASE 65 IU/L (46-116); ANION GAP 7 (8-16); ASPARTATE AMINO TRANSFERASE 34 U/L (10-37); BLOOD UREA NITROGEN 4 MG/DL (7-18); BUN/CREATININE RATIO 7.1 (5.4-32.0); CALCIUM 8.4 MG/DL (8.5-10.1); CHLORIDE 100 MMOL/L (99-107); CREATININE 0.56 MG/DL (0.60-1.10); GLUCOSE 120 MG/DL (70-104); MAGNESIUM 1.6 MG/DL (1.5-2.4); PHOSPHORUS 3.4 MG/DL (2.3-4.5); SODIUM 134 MMOL/L (135-145); TOTAL CARBON DIOXIDE 26.8 MMOL/L (24-32); TOTAL PROTEIN 6.9 G/DL (6.4-8.2); eGFR > 90 ML/MIN
[2019-05-31 06:47] LABS: POTASSIUM 3.7 MMOL/L (3.5-5.1)
[2019-05-31] MEDS: K and/or MAG REPLACEMENT MC SCH (08:00)
[2019-05-31] MEDS: lactose-reduced food (Ensure Enlive) - 237ml bottle PO SCH ×3 (08:00→18:00)
[2019-05-31] MEDS: multivitamins, therapeutics tablet PO SCH (08:05)
[2019-05-31] MEDS: folic acid 1mg tablet PO SCH (08:05)
[2019-05-31] MEDS: thiamine 100mg tablet PO SCH (08:05)
[2019-05-31] MEDS: enoxaparin 40mg/0.4ml syringe SQ SCH (08:06)
--- NOTE | 2019-05-31 13:39 | NUR ---
[id number] [facility] MESSAGE: Michael Christensen Rm [id number] Do you want to change his IV fluids to NS from D5? BG is >119 and he has PO intake. Not Diabetic PRACHI Barajas Ext [phone]
--- NOTE | 2019-05-31 15:48 | NUR ---
[id number] [facility] MESSAGE: DIAMANTE Chirstensen rm [id number] adding bowel care protocol for no BM x > 3 days Rica Barajas [phone] (91 character message out of a maximum of 240)
[2019-05-31] MEDS ORDERED: bisacodyl 10mg suppository rectal RC PRN (16:15)
--- NOTE | 2019-05-31 17:21 | NUR ---
PRN suppository placed with no results. He states that he is not uncomfortable and bowel sounds are positive x4,
[2019-05-31] MEDS ORDERED: lactose-reduced food (Ensure High Protein) 237ml bottle PO SCH (18:00)
--- NOTE | 2019-05-31 18:00 | NUR ---
Patient in room PCU 3017. I have received report from Jenn VELARDE and had the opportunity to ask questions and assume patient care.
--- NOTE | 2019-05-31 18:30 | NUR ---
Problems reprioritized. Patient report given, questions answered & plan of care reviewed with PRACHI Oropeza.
[2019-06-01 02:00] VITALS: BP 105/68
[2019-06-01] MEDS: dextrose 5%-normal saline 1,000 ML IV SCH ×2 (02:19→12:20)
[2019-06-01 06:00] VITALS: BP 123/63
--- NOTE | 2019-06-01 06:00 | NUR ---
Problems reprioritized. Patient report given, questions answered & plan of care reviewed with Keya VELARDE. Addendum: 06/01/19 at 0638 by Johnna Trimble RN Luisito VELARDE recieved report, not Keya VELARDE
[2019-06-01 06:05] LABS: PHOSPHORUS 4.4 MG/DL (2.3-4.5); POTASSIUM 3.6 MMOL/L (3.5-5.1)
--- NOTE | 2019-06-01 06:30 | NUR ---
Patient in room PCU 3017. I have received report from stevenson Norton and had the opportunity to ask questions and assume patient care.
[2019-06-01] MEDS: lactose-reduced food (Ensure Enlive) - 237ml bottle PO SCH ×4 (08:00→17:55)
[2019-06-01] MEDS: K and/or MAG REPLACEMENT MC SCH (08:00)
[2019-06-01] MEDS: folic acid 1mg tablet PO SCH (08:12)
[2019-06-01] MEDS: thiamine 100mg tablet PO SCH (08:13)
[2019-06-01] MEDS: multivitamins, therapeutics tablet PO SCH (08:13)
[2019-06-01] MEDS: enoxaparin 40mg/0.4ml syringe SQ SCH (08:14)
[2019-06-01 11:00] VITALS: BP 113/59
--- NOTE | 2019-06-01 11:26 | NUR ---
reassessment: Pt PO 100% ensure enlive last night no other ONS PO documented. PO fluctuates 50-75% avg meals w/ 100% last night following BMx2 yesterday after 7days constipation which likely impacted prior PO. RReceiving adaptive wear and sippy cup for tremors. Receiving thiamin/folic/MVI for etoh w/d possible Wernicke's encephalopathy on 1798.11 hold pending mental health eval for SI per MD note. Will continue to monitor. Recommendations: 1) Continue regular diet 2) Adaptive-burt and sippy cup while pt experiencing tremors 3) Ensure Enlive TID per MD 4) Continue Thiamine, Folic Acid, MVI given EtOH hx 5) Routine bowel care 6) Wt per rx Addendum: 06/01/19 at [address] Amended: Links added.
[2019-06-01] MEDS: acetaminophen 325mg tablet PO PRN (13:37)
[2019-06-01 15:00] VITALS: BP_SYST 101; BP_SYST 92; BP_DIAS 53; BP_DIAS 71
--- NOTE | 2019-06-01 18:41 | NUR ---
Problems reprioritized. Patient report given, questions answered & plan of care reviewed with PRACHI RICH.
[2019-06-01 19:00] VITALS: BP 125/80
[2019-06-01] MEDS: LORazepam 2 mg/ml vial IV PRN ×2 (20:27→22:04)
--- NOTE | 2019-06-01 21:09 | NUR ---
Patient in room PCU 3017. I have received report from PRACHI DEMPSEY and had the opportunity to ask questions and assume patient care.
--- NOTE | 2019-06-01 21:10 | NUR ---
Patient stated "I have to go save my , someone's trying to hurt her." and was taking off gown and pulling off tele. His tried to console him on the phone and said she was ok and will see him tomorrow, but he was still saying, "She needs me." when he got off the phone. Patient was given 2 doses of ativan 2mg 15 minutes apart. He is watching tv now.
[2019-06-01] MEDS: haloperidol lactate 5mg/ml inj IM PRN (22:20)
[2019-06-01 23:00] VITALS: BP 152/88
[2019-06-02] MEDS: haloperidol lactate 5mg/ml inj IM PRN (01:28)
[2019-06-02 02:00] VITALS: BP 161/89
[2019-06-02] MEDS: LORazepam 2 mg/ml vial IV PRN ×2 (02:43→23:26)
[2019-06-02 06:00] VITALS: BP 155/80
--- NOTE | 2019-06-02 06:21 | NUR ---
Problems reprioritized. Patient report given, questions answered & plan of care reviewed with PRACHI Jorge.
--- NOTE | 2019-06-02 06:30 | NUR ---
Patient in room PCU 3017. I have received report from LAYLA. PRACHI and had the opportunity to ask questions and assume patient care.
[2019-06-02] MEDS: folic acid 1mg tablet PO SCH (08:00)
[2019-06-02] MEDS: enoxaparin 40mg/0.4ml syringe SQ SCH (08:00)
[2019-06-02] MEDS: K and/or MAG REPLACEMENT MC SCH (08:00)
[2019-06-02] MEDS: thiamine 100mg tablet PO SCH (08:00)
[2019-06-02] MEDS: multivitamins, therapeutics tablet PO SCH (08:00)
[2019-06-02] MEDS: lactose-reduced food (Ensure Enlive) - 237ml bottle PO SCH ×3 (08:36→18:42)
[2019-06-02 11:00] VITALS: BP 127/72
[2019-06-02] MEDS: dextrose 5%-normal saline 1,000 ML IV SCH ×2 (14:50)
[2019-06-02 15:00] VITALS: BP 111/76
--- NOTE | 2019-06-02 18:42 | NUR ---
Problems reprioritized. Patient report given, questions answered & plan of care reviewed with stevenson ashford.
--- NOTE | 2019-06-02 18:43 | NUR ---
Student documentation: I have reviewed and agree with all interventions, assessments performed and documented by YADI MONET STUDENT.
[2019-06-02 19:00] VITALS: BP 134/71
[2019-06-02] MEDS ORDERED: magnesium Cl slow-release 64mg tablet PO PRN (21:35)
[2019-06-02] MEDS ORDERED: potassium Cl 20 mEq SR tablet PO PRN (21:35)
[2019-06-02] MEDS ORDERED: potassium CL 10mEq/100ml bag 100 ML IV PRN (21:35)
[2019-06-02] MEDS ORDERED: magnesium 4gm in 100ml NS 100 ML IV PRN (21:35)
--- NOTE | 2019-06-02 22:37 | NUR ---
Patient in room PCU 3017. I have received report from PRACHI Jorge and had the opportunity to ask questions and assume patient care.
--- NOTE | 2019-06-02 22:37 | NUR ---
MD called to take patient off of restraints. Renewal was not needed at this time. patient has been calm and sleepy.
[2019-06-02 23:00] VITALS: BP 141/78
[2019-06-03 02:00] VITALS: BP 157/90
[2019-06-03] MEDS: dextrose 5%-normal saline 1,000 ML IV SCH ×2 (04:16→19:58)
--- NOTE | 2019-06-03 04:30 | NUR ---
called for restraint orders. patient tried to hit staff and states, "Get away from me you bitch." during care.
[2019-06-03 05:27] LABS: BASOPHILS # (AUTO) 0.1 X10'3 (0-0.2); BASOPHILS % (AUTO) 1.3 % (0-1); EOSINOPHILS # (AUTO) 0.3 X10'3 (0-0.9); EOSINOPHILS % (AUTO) 5.7 % (0-6); HEMATOCRIT 43.4 % (42.0-52.0); HEMOGLOBIN 15.2 g/dl (14.0-17.9); LYMPHOCYTES # (AUTO) 1.1 X10'3 (1.1-4.8); LYMPHOCYTES % (AUTO) 23.4 % (21-51); MEAN CORPUSCULAR HEMOGLOBIN 34.6 PG (27.0-31.0); MEAN CORPUSCULAR VOLUME 98.9 FL (78-98); MEAN PLATELET VOLUME 7.3 FL (7.4-10.4); MONOCYTES # (AUTO) 0.7 X10'3 (0-0.9); MONOCYTES % (AUTO) 14.4 % (2-12); NEUTROPHILS # (AUTO) 2.5 X10'3 (1.8-7.7); NEUTROPHILS % (AUTO) 55.2 % (42-75); PLATELET COUNT 166 X10'3 (140-440); RED BLOOD COUNT 4.39 X10'6 (4.70-6.10); RED CELL DISTRIBUTION WIDTH 12.4 % (11.5-14.5); WHITE BLOOD COUNT 4.6 X10'3 (4.5-11.0)
[2019-06-03 05:29] LABS: ALANINE AMINOTRANSFERASE 32 U/L (12-78); ALBUMIN/GLOBULIN RATIO 0.8 (1.1-1.5); ALKALINE PHOSPHATASE 69 IU/L (46-116); ANION GAP 7 (8-16); ASPARTATE AMINO TRANSFERASE 33 U/L (10-37); BILIRUBIN,TOTAL 1.2 MG/DL (0.1-1.0); BLOOD UREA NITROGEN 3 MG/DL (7-18); BUN/CREATININE RATIO 5.1 (5.4-32.0); CALCIUM 8.9 MG/DL (8.5-10.1); CHLORIDE 105 MMOL/L (99-107); CREATININE 0.59 MG/DL (0.60-1.10); GLUCOSE 114 MG/DL (70-104); MAGNESIUM 1.4 MG/DL (1.5-2.4); PHOSPHORUS 3.8 MG/DL (2.3-4.5); POTASSIUM 3.4 MMOL/L (3.5-5.1); SODIUM 139 MMOL/L (135-145); TOTAL CARBON DIOXIDE 26.8 MMOL/L (24-32); eGFR > 90 ML/MIN
[2019-06-03] MEDS: LORazepam 2 mg/ml vial IV PRN (05:33)
[2019-06-03 06:00] VITALS: BP 142/81
--- NOTE | 2019-06-03 06:39 | NUR ---
Patient in room PCU 3017. I have received report from PRACHI Becerra and had the opportunity to ask questions and assume patient care. Pt sleeping. In no apparent distress. Will continue to monitor.
[2019-06-03] MEDS: potassium Cl 20 mEq SR tablet PO PRN ×3 (08:39→17:58)
[2019-06-03] MEDS: enoxaparin 40mg/0.4ml syringe SQ SCH (08:39)
[2019-06-03] MEDS: multivitamins, therapeutics tablet PO SCH (08:39)
[2019-06-03] MEDS: folic acid 1mg tablet PO SCH (08:39)
[2019-06-03] MEDS: thiamine 100mg tablet PO SCH (08:39)
[2019-06-03] MEDS: lactose-reduced food (Ensure Enlive) - 237ml bottle PO SCH ×3 (08:40→18:01)
[2019-06-03] MEDS: K and/or MAG REPLACEMENT MC SCH (08:40)
--- NOTE | 2019-06-03 12:36 | NUR ---
Restraints removed. Pt is not combative, able to understand and follow instructions, not exhibiting violent or aggressive behavior. The pt does not remember his combative behavior or having spit at staff yesterday. He stated he "better not go today, then." The pt was informed that we will continue to monitor his progress and reassess for discharge at a later time.
--- NOTE | 2019-06-03 13:57 | NUR ---
PAGER ID: [phone] MESSAGE: RE: Michael Jimenez [phone]. called asking about pt's mental status, whether or not he is going to be committed. I got in report a psych consult may be in order, should we order psych consult? - Megan [phone]
--- NOTE | 2019-06-03 13:58 | NUR ---
called asking if the pt is going to be committed. Stated he has the pt's gun, and does not want to release it to him if he still has suicidal ideation. Mental health called and was informed that Dr Jones was paged regarding a psych consult. Mental health stated that they have not seen this pt yet. The pt was placed on a 5150 hold and BIB , and has since been placed on a 1799.11 by physicians, which has been renewed.
--- NOTE | 2019-06-03 14:13 | NUR ---
Sent to Dr Jones PAGER ID: [phone] MESSAGE: RE: Michael Jimenez [phone]. [facility] Mental health called stating the [employer] called them as well, asking why the pt has not been seen by them yet. Mental health stated the pt must still be on PCU for medical reasons. -Megan [phone]
[2019-06-03] MEDS: lactulose 20gm/30ml cup PO SCH ×2 (14:27→19:56)
--- NOTE | 2019-06-03 14:48 | NUR ---
Speaking with the pt, he stated that he is a failure. When asked if he still wants to kill himself, he scoffed and stated that he did not; there is still too much to do, like hunting and fishing.
--- NOTE | 2019-06-03 14:50 | NUR ---
Dr Jones called for clarification regarding the pt's condition. I confirmed that the restraints were off, and that the pt has not needed Ativan today. Dr Jones stated that the psych Dr knew about the pt, and that we are waiting for the pt's detox to finish. Per charge nurse, we have also been waiting for the pt to be cleared by PT. Spoke with Jimmy from PT to follow up with the physical therapist about clearing the pt for mental health. I then called mental health and spoke with a nurse for a consult by the .
[2019-06-03 15:39] VITALS: BP 132/73
[2019-06-03 15:55] LABS: CLARITY,URINE CLEAR (Clear); COLOR,URINE YELLOW (Yellow); GLUCOSE, URINE NEGATIVE (Neg); KETONES,URINE NEGATIVE (Neg); LEUKOCYTE ESTERASE ,URINE NEGATIVE (Neg); NITRITES, URINE NEGATIVE (Neg); OCCULT BLOOD,URINE NEGATIVE (Neg); PROTEIN,URINE NEGATIVE (Neg); UROBILINOGEN,URINE >=8.0 E.U/dL (0.2-1.0)
[2019-06-03 16:02] LABS: UA COLLECTION TYPE NON-SPECIFIED
--- NOTE | 2019-06-03 16:45 | NUR ---
Pt going down for MRI/MRA
--- NOTE | 2019-06-03 17:25 | NUR ---
Pt back from MRI
--- NOTE | 2019-06-03 17:37 | NUR ---
pt left eye extremely pink. excessive mucous draining from left eye. glued shut after woken from nap. Sent to Dr Jones PAGER ID: [phone] MESSAGE: RE: Michael Jimenez [phone]. FYI pt appears to have an infection in his L eye. -Megan [phone]
[2019-06-03 18:00] VITALS: BP 152/82
--- NOTE | 2019-06-03 18:00 | NUR ---
Sent to Dr Jones PAGER ID: [phone] MESSAGE: RE: Michael Jimenez [phone]. Pt requesting flu vaccine. Megan [phone]
--- NOTE | 2019-06-03 18:32 | NUR ---
Problems reprioritized. Patient report given, questions answered & plan of care reviewed with PRACHI Becerra.
[2019-06-03] MEDS: ciprofloxacin 0.3% 2.5ml ophthalmic solution EACHEYE SCH ×2 (19:57→23:30)
[2019-06-03 22:00] VITALS: BP 145/79
[2019-06-04] MEDS: lactulose 20gm/30ml cup PO SCH ×5 (01:31→19:58)
[2019-06-04 02:00] VITALS: BP 172/95
[2019-06-04 02:00] LABS: ABG BASE EXCESS 0.1 mmol/L (-2.0-3.0); ABG HCO3 24.3 mmol/L (22.0-26.0); ABG OXYGEN SATURATION 92.4 % (95-98); ABG PCO2 (T) 39.6 mmHg (35.0-45.0); ABG PO2 (T) 66.7 mmHg (83-108); FCOHb 0.6 % (0.5-1.5); FMetHb 0.2 % (0.3-1.12); FO2Hb 91.7 % (94-100); PATIENT TEMPERATURE 37.7; TOTAL HEMOGLOBIN 15.9 G/dl (14.0-17.9)
[2019-06-04] MEDS: ondansetron/PF 4mg/2ml inj IV PRN (02:02)
[2019-06-04 02:21] LABS: BASOPHILS # (AUTO) 0.1 X10'3 (0-0.2); BASOPHILS % (AUTO) 0.9 % (0-1); EOSINOPHILS # (AUTO) 0.2 X10'3 (0-0.9); EOSINOPHILS % (AUTO) 3.9 % (0-6); HEMATOCRIT 44.6 % (42.0-52.0); HEMOGLOBIN 15.5 g/dl (14.0-17.9); LYMPHOCYTES # (AUTO) 1.2 X10'3 (1.1-4.8); LYMPHOCYTES % (AUTO) 21.3 % (21-51); MEAN CORPUSCULAR HEMOGLOBIN 34.4 PG (27.0-31.0); MEAN CORPUSCULAR HGB CONC 34.7 g/dL (33.0-36.5); MEAN CORPUSCULAR VOLUME 99.3 FL (78-98); MEAN PLATELET VOLUME 6.9 FL (7.4-10.4); MONOCYTES # (AUTO) 0.8 X10'3 (0-0.9); MONOCYTES % (AUTO) 13.6 % (2-12); NEUTROPHILS # (AUTO) 3.4 X10'3 (1.8-7.7); NEUTROPHILS % (AUTO) 60.3 % (42-75); PLATELET COUNT 197 X10'3 (140-440); RED BLOOD COUNT 4.49 X10'6 (4.70-6.10); RED CELL DISTRIBUTION WIDTH 12.6 % (11.5-14.5); WHITE BLOOD COUNT 5.7 X10'3 (4.5-11.0)
[2019-06-04 02:34] LABS: ALANINE AMINOTRANSFERASE 27 U/L (12-78); ALBUMIN 3.1 G/DL (3.4-5.0); ALBUMIN/GLOBULIN RATIO 0.7 (1.1-1.5); ANION GAP 7 (8-16); ASPARTATE AMINO TRANSFERASE 31 U/L (10-37); BLOOD UREA NITROGEN 4 MG/DL (7-18); BUN/CREATININE RATIO 5.9 (5.4-32.0); CALCIUM 8.9 MG/DL (8.5-10.1); CHLORIDE 106 MMOL/L (99-107); CREATININE 0.68 MG/DL (0.60-1.10); GLUCOSE 122 MG/DL (70-104); POTASSIUM 3.9 MMOL/L (3.5-5.1); SODIUM 140 MMOL/L (135-145); TOTAL CARBON DIOXIDE 26.6 MMOL/L (24-32); TOTAL PROTEIN 7.3 G/DL (6.4-8.2); eGFR > 90 ML/MIN
[2019-06-04 02:35] LABS: ALKALINE PHOSPHATASE 82 IU/L (46-116)
[2019-06-04 02:36] LABS: AMMONIA < 10 UMOL/L (11-32)
[2019-06-04 02:37] LABS: MAGNESIUM 1.7 MG/DL (1.5-2.4); PHOSPHORUS 3.6 MG/DL (2.3-4.5); TROPONIN I < 0.04 NG/ML (0.0-0.05)
[2019-06-04] MEDS: ciprofloxacin 0.3% 2.5ml ophthalmic solution EACHEYE SCH ×5 (03:55→19:43)
--- NOTE | 2019-06-04 04:36 | NUR ---
Rapid Response A rapid response was called on this patient. On arrival to bedside, the patient was vomiting, unable to swallow liquid medication, very moist gurgling sounding continous cough, head kept sloughing to one side. Interventions: [MD was called, Stat Chest X-ray, Stat ABGS from Resp, Stat Lab draw from lab, ICU charge nurse did the physical assessment, IV Zofran given] Rapid response outcome: [ICU charge nurse called MD and MD said to have the patient saline locked, turned to his side for the night, and notify of any critical labs.]
--- NOTE | 2019-06-04 04:46 | NUR ---
Vital signs at Rapid response was BP 172/95, HR 95, RR 24, SpO2 95%, temp 99.8 Axillary. Glucose was 122.
[2019-06-04 06:00] VITALS: BP 113/70
--- NOTE | 2019-06-04 06:30 | NUR ---
Patient in room PCU 3017. I have received report from Mariam VELARDE and had the opportunity to ask questions and assume patient care. All patient's needs met at this time.
--- NOTE | 2019-06-04 06:35 | NUR ---
Problems reprioritized. Patient report given, questions answered & plan of care reviewed with Magali Palacio RN.
[2019-06-04] MEDS: lactose-reduced food (Ensure Enlive) - 237ml bottle PO SCH ×2 (08:00→13:00)
[2019-06-04] MEDS: K and/or MAG REPLACEMENT MC SCH (08:00)
[2019-06-04] MEDS: thiamine 100mg tablet PO SCH (10:20)
[2019-06-04] MEDS: multivitamins, therapeutics tablet PO SCH (10:20)
[2019-06-04] MEDS: folic acid 1mg tablet PO SCH (10:20)
[2019-06-04] MEDS: enoxaparin 40mg/0.4ml syringe SQ SCH (10:21)
[2019-06-04 11:00] VITALS: BP 138/86
[2019-06-04 15:00] VITALS: BP 108/75
--- NOTE | 2019-06-04 18:20 | NUR ---
Patient in room U 3017. I have received report from Magali VELARDE and had the opportunity to ask questions and assume patient care. Patient is resting in bed, he has a sitter in the room. Will continue to monitor.
--- NOTE | 2019-06-04 18:37 | NUR ---
Problems reprioritized. Patient report given, questions answered & plan of care reviewed with Shelly VELARDE. All patient's needs met at this time.
[2019-06-04 19:00] VITALS: BP 111/79
[2019-06-04] MEDS: haloperidol lactate 5mg/ml inj IM PRN (20:15)
[2019-06-04] MEDS: LORazepam 2 mg/ml vial IV PRN ×2 (20:15→22:51)
--- NOTE | 2019-06-04 20:15 | NUR ---
Patient becoming agitated, aggressive and non-compliant. Had to restrain him while administering haldol and ativan.
--- NOTE | 2019-06-04 20:51 | NUR ---
PAGER ID: [phone] MESSAGE: Shelly HORTON [phone], Saji Jimenez. Patient needs restraint order renewed, also renewal from last night needs to be signed. Thanks
[2019-06-04] MEDS ORDERED: thiamine 100mg/ml 2ml inj. IV SCH (21:35)
[2019-06-04] MEDS: thiamine inj. 100 MG in normal saline 100ml IV soln 100 ML IV SCH (22:51)
[2019-06-04 23:00] VITALS: BP 130/78
[2019-06-05 03:00] VITALS: BP 115/70
[2019-06-05 06:00] VITALS: BP 139/90
[2019-06-05 06:04] LABS: BASOPHILS # (AUTO) 0.1 X10'3 (0-0.2); EOSINOPHILS # (AUTO) 0.4 X10'3 (0-0.9); EOSINOPHILS % (AUTO) 5.8 % (0-6); HEMATOCRIT 41.2 % (42.0-52.0); HEMOGLOBIN 14.4 g/dl (14.0-17.9); LYMPHOCYTES # (AUTO) 1.6 X10'3 (1.1-4.8); LYMPHOCYTES % (AUTO) 27.3 % (21-51); MEAN CORPUSCULAR HEMOGLOBIN 34.4 PG (27.0-31.0); MEAN CORPUSCULAR HGB CONC 34.9 g/dL (33.0-36.5); MEAN CORPUSCULAR VOLUME 98.4 FL (78-98); MONOCYTES # (AUTO) 0.8 X10'3 (0-0.9); MONOCYTES % (AUTO) 13.5 % (2-12); NEUTROPHILS # (AUTO) 3.1 X10'3 (1.8-7.7); NEUTROPHILS % (AUTO) 51.4 % (42-75); PLATELET COUNT 207 X10'3 (140-440); RED BLOOD COUNT 4.18 X10'6 (4.70-6.10); RED CELL DISTRIBUTION WIDTH 12.4 % (11.5-14.5)
--- NOTE | 2019-06-05 06:15 | NUR ---
Problems reprioritized. Patient report given, questions answered & plan of care reviewed with Magali VELARDE.
[2019-06-05 07:01] LABS: ALANINE AMINOTRANSFERASE 28 U/L (12-78); ALBUMIN 2.8 G/DL (3.4-5.0); ALBUMIN/GLOBULIN RATIO 0.7 (1.1-1.5); ALKALINE PHOSPHATASE 73 IU/L (46-116); ANION GAP 7 (8-16); ASPARTATE AMINO TRANSFERASE 32 U/L (10-37); BILIRUBIN,TOTAL 1.2 MG/DL (0.1-1.0); BLOOD UREA NITROGEN 9 MG/DL (7-18); BUN/CREATININE RATIO 11.7 (5.4-32.0); CALCIUM 8.9 MG/DL (8.5-10.1); CHLORIDE 105 MMOL/L (99-107); CREATININE 0.77 MG/DL (0.60-1.10); GLUCOSE 92 MG/DL (70-104); MAGNESIUM 1.8 MG/DL (1.5-2.4); POTASSIUM 4.3 MMOL/L (3.5-5.1); SODIUM 141 MMOL/L (135-145); TOTAL CARBON DIOXIDE 28.9 MMOL/L (24-32); TOTAL PROTEIN 6.7 G/DL (6.4-8.2); eGFR > 90 ML/MIN
[2019-06-05] MEDS: K and/or MAG REPLACEMENT MC SCH (08:00)
[2019-06-05] MEDS: ciprofloxacin 0.3% 2.5ml ophthalmic solution EACHEYE SCH ×6 (08:00→19:59)
[2019-06-05] MEDS: lactose-reduced food (Ensure Enlive) - 237ml bottle PO SCH ×3 (08:00→18:00)
[2019-06-05] MEDS: LORazepam 2 mg/ml vial IV PRN ×4 (08:27→23:49)
--- NOTE | 2019-06-05 09:22 | NUR ---
Paged Dr Jones MESSAGE: Re: Michael Aguirre [id number] Ammonia has been <10 the last two days, Lactulose was held for 06/04, do you want me to still administer Lactulose today or continue to hold it? Thanks Magali Palacio [phone]
[2019-06-05] MEDS: folic acid 1mg tablet PO SCH (09:26)
[2019-06-05] MEDS: cyanocobalamin 500mcg tablet PO SCH (09:26)
[2019-06-05] MEDS: multivitamins, therapeutics tablet PO SCH (09:26)
[2019-06-05] MEDS: enoxaparin 40mg/0.4ml syringe SQ SCH (09:27)
[2019-06-05] MEDS: thiamine inj. 100 MG in normal saline 100ml IV soln 100 ML IV SCH (10:37)
--- NOTE | 2019-06-05 10:39 | NUR ---
Nutrition consult: Pt not meeting nutrient needs with fluctuating PO intake, documented with 0-25% of most meals however with some 75-100% despite having adaptive utensils, a sippy cup, and assistance with meals. PO intake of ONS has also declined overall 25-50%. Pt confused and A/O x 1, possibly with Wernicke's encephalopathy per MD notes. Thiamine supplementation has been changed to IV d/t poor PO intake per MD notes. Potentially to start NG feedings if PO intake continues to be poor per MD notes. TF recommendations below, calculated to meet 100% of patient's estimated nutrient needs using IBW as patient's current documented wt is pt stated despite pt being confused since admission. LBM 06/01, pt with routine Lactulose however not given yesterday d/t NH3 <10. Pt also with PRN Dulcolax suppository last given 05/31 and MoM last given 05/29. Pt would benefit from routine bowel care. Will continue to follow closely. Recommendations: 1) Continue regular diet 2) Adaptive-burt and sippy cup while pt experiencing tremors 3) Ensure Enlive TID per MD 4) IF to receive TF, recommend continuous TF using Jevity with goal rate of 80 mL/hr with 125 mL water flush Q4H 5) Continue Thiamine, Folic Acid, MVI given EtOH hx 6) Routine bowel care 7) Wt per rx Addendum: 06/05/19 at [address] Amended: Links added.
[2019-06-05 11:00] VITALS: BP 157/84
[2019-06-05 15:00] VITALS: BP 127/79
[2019-06-05 19:00] VITALS: BP 148/104
[2019-06-05] MEDS: lactulose 20gm/30ml cup PO SCH (20:00)
[2019-06-05 23:00] VITALS: BP 127/77
[2019-06-05] MEDS: haloperidol lactate 5mg/ml inj IM PRN (23:49)
--- NOTE | 2019-06-06 00:30 | NUR ---
Paged Dr. Butterfield PAGER ID: [phone] MESSAGE: Shelly HORTON [phone], Saji Jimenez 69M, . HR sustaining 130-140. Has been 80-90 previously. Doesn't take any meds for HR or BP. Addendum: 06/06/19 at 0123 by Shelly Robles RN New orders for Metoprolol 5mg IV Q15 min for HR >120.
[2019-06-06] MEDS ORDERED: metoprolol tartrate 1mg/ml inj IV PRN (00:50)
[2019-06-06] MEDS: LORazepam 2 mg/ml vial IV PRN ×6 (01:05→20:01)
[2019-06-06 03:00] VITALS: BP 137/78
[2019-06-06] MEDS: ciprofloxacin 0.3% 2.5ml ophthalmic solution EACHEYE SCH ×6 (04:00→20:00)
[2019-06-06] MEDS: haloperidol lactate 5mg/ml inj IM PRN (04:05)
[2019-06-06 05:23] LABS: BASOPHILS # (AUTO) 0.1 X10'3 (0-0.2); EOSINOPHILS # (AUTO) 0.2 X10'3 (0-0.9); HEMOGLOBIN 14.8 g/dl (14.0-17.9); LYMPHOCYTES # (AUTO) 1.3 X10'3 (1.1-4.8); LYMPHOCYTES % (AUTO) 21.6 % (21-51); MEAN CORPUSCULAR HEMOGLOBIN 34.3 PG (27.0-31.0); MEAN CORPUSCULAR HGB CONC 35.3 g/dL (33.0-36.5); MEAN CORPUSCULAR VOLUME 97.3 FL (78-98); MEAN PLATELET VOLUME 7.1 FL (7.4-10.4); MONOCYTES # (AUTO) 0.7 X10'3 (0-0.9); MONOCYTES % (AUTO) 11.8 % (2-12); NEUTROPHILS # (AUTO) 3.6 X10'3 (1.8-7.7); NEUTROPHILS % (AUTO) 61.6 % (42-75); PLATELET COUNT 220 X10'3 (140-440); RED BLOOD COUNT 4.32 X10'6 (4.70-6.10); RED CELL DISTRIBUTION WIDTH 12.1 % (11.5-14.5); WHITE BLOOD COUNT 5.9 X10'3 (4.5-11.0)
[2019-06-06 05:28] LABS: ALANINE AMINOTRANSFERASE 34 U/L (12-78); ALBUMIN/GLOBULIN RATIO 0.7 (1.1-1.5); ALKALINE PHOSPHATASE 81 IU/L (46-116); ANION GAP 8 (8-16); ASPARTATE AMINO TRANSFERASE 37 U/L (10-37); BILIRUBIN,TOTAL 1.3 MG/DL (0.1-1.0); BLOOD UREA NITROGEN 8 MG/DL (7-18); BUN/CREATININE RATIO 12.1 (5.4-32.0); CALCIUM 9.3 MG/DL (8.5-10.1); CHLORIDE 101 MMOL/L (99-107); CREATININE 0.66 MG/DL (0.60-1.10); GLUCOSE 104 MG/DL (70-104); MAGNESIUM 1.5 MG/DL (1.5-2.4); POTASSIUM 3.7 MMOL/L (3.5-5.1); SODIUM 137 MMOL/L (135-145); TOTAL CARBON DIOXIDE 28.3 MMOL/L (24-32); TOTAL PROTEIN 7.1 G/DL (6.4-8.2); eGFR > 90 ML/MIN
[2019-06-06 06:00] VITALS: BP 123/103
--- NOTE | 2019-06-06 06:41 | NUR ---
Problems reprioritized. Patient report given, questions answered & plan of care reviewed with Maria E VELARDE .
[2019-06-06] MEDS: K and/or MAG REPLACEMENT MC SCH (07:11)
[2019-06-06] MEDS: LORazepam 0.5 MG tablet PO SCH ×3 (08:00→17:17)
[2019-06-06] MEDS: lactose-reduced food (Ensure Enlive) - 237ml bottle PO SCH ×2 (08:00→13:20)
[2019-06-06] MEDS: thiamine inj. 100 MG in normal saline 100ml IV soln 100 ML IV SCH (08:00)
[2019-06-06] MEDS: lactulose 20gm/30ml cup PO SCH (08:00)
[2019-06-06] MEDS: cyanocobalamin 500mcg tablet PO SCH (10:57)
[2019-06-06] MEDS: enoxaparin 40mg/0.4ml syringe SQ SCH (10:57)
[2019-06-06] MEDS: multivitamins, therapeutics tablet PO SCH (10:57)
[2019-06-06] MEDS: folic acid 1mg tablet PO SCH (10:58)
[2019-06-06 11:00] VITALS: BP 123/77
[2019-06-06 15:00] VITALS: BP 139/81
[2019-06-06] MEDS ORDERED: haloperidol 5mg tablet PO PRN (15:50)
[2019-06-06] MEDS: piperacillin/tazo 3.375gm/50ml 50 ML IV SCH ×2 (16:00→17:17)
--- NOTE | 2019-06-06 16:22 | NUR ---
TF consult: Per RN Corpak not placed yet. TF recommendations in place for once Corpak placed and confirmed in appropriate location. Pt averaging 50% PO intake since lunch 06/04 however down to 0-25% at breakfast today with 25-75% PO intake of ONS. PO intake is fair considering current mentation. ST has been consulted by MD for modified barium swallow. TF is appropriate at this time given patient's inconsistent PO intake. Will continue to follow closely. Recommendations: 1) Once Corpak placed and confirmed in appropriate location, continuous TF using Jevity with goal rate of 80 mL/hr to provide: total volume of 1920 mL/day, 2304 kcal, 107 g protein, and 1549 mL water 2) Once TF, 125 mL water flush Q4H 3) Prealbumin q /; daily weights 4) PO diet advancement to regular as medically indicated per ST/ 5) Monitor need to resume ONS, adaptive-burt, and sippy cup while pt experiencing tremors with PO diet advancement 6) Continue Thiamine, Folic Acid, MVI given EtOH hx 7) Routine bowel care 8) Wt per rx Addendum: 06/06/19 at [address] Amended: Links added.
--- NOTE | 2019-06-06 18:36 | NUR ---
Problems reprioritized. Patient report given, questions answered & plan of care reviewed with Shelly VELARDE.
[2019-06-06 19:00] VITALS: BP 138/88
[2019-06-06] MEDS ORDERED: acetaminophen 325mg tablet NG PRN ×2 (19:12→19:13)
[2019-06-06] MEDS ORDERED: cyanocobalamin 500mcg tablet NG SCH (19:13)
[2019-06-06] MEDS ORDERED: haloperidol 5mg tablet NG PRN (19:14)
[2019-06-06] MEDS ORDERED: folic acid 1mg tablet NG SCH (19:14)
[2019-06-06] MEDS ORDERED: magnesium hydroxide 30ml (MOM) UD suspension NG PRN (19:33)
[2019-06-06] MEDS ORDERED: mag hydrox/Alum hydrox/simeth 30ml oral suspension NG PRN (19:34)
[2019-06-06] MEDS: lactulose 20gm/30ml cup NG SCH (22:23)
[2019-06-06 23:00] VITALS: BP 173/87
--- NOTE | 2019-06-06 23:44 | NUR ---
Paged Dr. Butterfield PAGER ID: [phone] MESSAGE: Shelly HORTON [phone], Saji Jimenez [phone].Admitting DX . Patient is on lactulose 20g but does not have lab orders for ammonia. 06/05 result was <10.
[2019-06-07] MEDS: piperacillin/tazo 3.375gm/50ml 50 ML IV SCH ×2 (00:28→09:43)
[2019-06-07] MEDS: LORazepam 0.5 MG tablet NG SCH ×3 (00:29→15:20)
[2019-06-07 03:00] VITALS: BP 173/84
[2019-06-07] MEDS: LORazepam 2 mg/ml vial IV PRN ×2 (03:50→21:41)
[2019-06-07] MEDS: ciprofloxacin 0.3% 2.5ml ophthalmic solution EACHEYE SCH ×3 (04:00→09:26)
[2019-06-07 06:19] LABS: BASOPHILS # (AUTO) 0.1 X10'3 (0-0.2); BASOPHILS % (AUTO) 0.9 % (0-1); EOSINOPHILS # (AUTO) 0.2 X10'3 (0-0.9); EOSINOPHILS % (AUTO) 2.7 % (0-6); HEMATOCRIT 43.4 % (42.0-52.0); HEMOGLOBIN 15.2 g/dl (14.0-17.9); LYMPHOCYTES # (AUTO) 1.1 X10'3 (1.1-4.8); LYMPHOCYTES % (AUTO) 15.2 % (21-51); MEAN CORPUSCULAR HEMOGLOBIN 34.5 PG (27.0-31.0); MEAN CORPUSCULAR HGB CONC 35.1 g/dL (33.0-36.5); MEAN CORPUSCULAR VOLUME 98.4 FL (78-98); MEAN PLATELET VOLUME 7.5 FL (7.4-10.4); MONOCYTES # (AUTO) 0.9 X10'3 (0-0.9); MONOCYTES % (AUTO) 12.1 % (2-12); NEUTROPHILS # (AUTO) 5.1 X10'3 (1.8-7.7); NEUTROPHILS % (AUTO) 69.1 % (42-75); PLATELET COUNT 219 X10'3 (140-440); RED BLOOD COUNT 4.42 X10'6 (4.70-6.10); RED CELL DISTRIBUTION WIDTH 12.1 % (11.5-14.5); WHITE BLOOD COUNT 7.4 X10'3 (4.5-11.0)
--- NOTE | 2019-06-07 06:20 | NUR ---
Patient in room PCU 3017. I have received report from PRACHI Bravo and had the opportunity to ask questions and assume patient care.
[2019-06-07 06:25] LABS: ALANINE AMINOTRANSFERASE 33 U/L (12-78); ALBUMIN 3.1 G/DL (3.4-5.0); ALBUMIN/GLOBULIN RATIO 0.8 (1.1-1.5); ALKALINE PHOSPHATASE 83 IU/L (46-116); ANION GAP 10 (8-16); ASPARTATE AMINO TRANSFERASE 32 U/L (10-37); BILIRUBIN,TOTAL 1.2 MG/DL (0.1-1.0); BLOOD UREA NITROGEN 6 MG/DL (7-18); BUN/CREATININE RATIO 9.1 (5.4-32.0); CALCIUM 9.2 MG/DL (8.5-10.1); CHLORIDE 101 MMOL/L (99-107); CREATININE 0.66 MG/DL (0.60-1.10); GLUCOSE 122 MG/DL (70-104); MAGNESIUM 1.6 MG/DL (1.5-2.4); PHOSPHORUS 4.4 MG/DL (2.3-4.5); POTASSIUM 3.7 MMOL/L (3.5-5.1); SODIUM 137 MMOL/L (135-145); TOTAL CARBON DIOXIDE 26.5 MMOL/L (24-32); TOTAL PROTEIN 7.2 G/DL (6.4-8.2); eGFR > 90 ML/MIN
--- NOTE | 2019-06-07 06:30 | NUR ---
Problems reprioritized. Patient report given, questions answered & plan of care reviewed with Zoë VELARDE.
[2019-06-07] MEDS: lactose-reduced food (Ensure Enlive) - 237ml bottle NG SCH ×3 (08:00→18:00)
[2019-06-07] MEDS: K and/or MAG REPLACEMENT MC SCH (08:00)
--- NOTE | 2019-06-07 08:49 | NUR ---
Patient in room PCU 3017. I have received report from PRACHI Gautam and had the opportunity to ask questions and assume patient care.
--- NOTE | 2019-06-07 08:49 | NUR ---
Problems reprioritized. Patient report given, questions answered & plan of care reviewed with PRACHI Girard.
[2019-06-07] MEDS: lactulose 20gm/30ml cup NG SCH ×2 (09:02→20:00)
[2019-06-07] MEDS: multivitamins, therapeutics tablet PO SCH (09:03)
[2019-06-07] MEDS: enoxaparin 40mg/0.4ml syringe SQ SCH (09:26)
--- NOTE | 2019-06-07 10:03 | NUR ---
Notified by sitter that patient's NG tube is coiled in patient's mouth. Tube feeding stopped. NG tube removed. Pt able to take small sips of water to rinse mouth out. Pt tolerated. Will continue to monitor and will notify primary RNCristóbal.
[2019-06-07 11:00] VITALS: BP 103/66
--- NOTE | 2019-06-07 12:49 | NUR ---
Per John's written note on documentation with regards to discussion of comfort care on patient with patient's : Dr Jones arrived at the bedside, addressed the patient's , and proceeded with his assessment, Dr Jones discussed reinsertion of the NG tube that the patient has pulled out, twice. Dr. Jones explained that the patient is otherwise unable to eat. He asked patient's if reinsertion is what the patient would want, she said no. Dr Jones clarified that not reinserted the NG tube would mean withholding life sustaining resources. Patient's acknowledged that she understood. Dr Jones then discussed getting hospice involved and making the patient as comfortable as possible. Patient's agreed that, in his condition, that would be for the best. Esperanza, case management; PRACHI Ambrocio and Dr Jones all came back to the bedside for confirmation to proceed with placing the patient on hospice care. Note place in the front of the chart on yellow legal paper.
[2019-06-07] MEDS: thiamine inj. 100 MG in normal saline 100ml IV soln 100 ML IV SCH (14:02)
[2019-06-07 18:00] VITALS: BP 139/87
--- NOTE | 2019-06-07 18:25 | NUR ---
Problems reprioritized. Patient report given, questions answered & plan of care reviewed with PRACHI Humphreys.
--- NOTE | 2019-06-07 18:30 | NUR ---
Patient in room PCU 3014H. I have received report from PRACHI Ambrocio and had the opportunity to ask questions and assume patient care. Pt is in DNR comfort care.
[2019-06-07] MEDS ORDERED: lactobacillus rhamnosus 10,000 MMU CELLS/CAPSULE PO SCH (20:00)
--- NOTE | 2019-06-07 21:00 | NUR ---
Patient non-cooperative with medications due at 1999. Stephen Murguia, charge nurse, pt is in comfort care. Will administered Ativan.
[2019-06-07] MEDS: haloperidol lactate 5mg/ml inj IM PRN (22:46)
[2019-06-07] MEDS: morphine 10mg/0.5ml (conc. morphine) oral syringe PO PRN (23:05)
[2019-06-08] MEDS: LORazepam 2 mg/ml vial IV PRN (00:59)
[2019-06-08 06:00] VITALS: BP 136/75
--- NOTE | 2019-06-08 06:07 | NUR ---
Problems reprioritized. Patient report given, questions answered & plan of care reviewed with PRACHI Ambrocio.
--- NOTE | 2019-06-08 06:22 | NUR ---
Patient in room PCU 3017. I have received report from PRACHI Humphreys and had the opportunity to ask questions and assume patient care.
[2019-06-08] MEDS: lactulose 20gm/30ml cup NG SCH ×2 (07:07→20:00)
[2019-06-08] MEDS: thiamine inj. 100 MG in normal saline 100ml IV soln 100 ML IV SCH (08:42)
--- NOTE | 2019-06-08 12:33 | NUR ---
F/u: Pt has been made DNR w/ comfort care and TF has been d/c. LBNancy 06/01; YOAN d/w RN for suppository per MD approval for constipation relief while NPO. Will continue to follow per protocol. Recommendations: 1) Routine bowel care Addendum: 06/08/19 at [address] Amended: Links added.
[2019-06-08] MEDS: morphine 10mg/0.5ml (conc. morphine) oral syringe PO PRN (12:43)
[2019-06-08] MEDS ORDERED: LORazepam 1 MG tablet NG PRN (15:50)
[2019-06-08] MEDS ORDERED: LORazepam 2 mg/ml vial IV PRN (15:50)
--- NOTE | 2019-06-08 18:16 | NUR ---
Problems reprioritized. Patient report given, questions answered & plan of care reviewed with PRACHI Humphreys.
--- NOTE | 2019-06-08 18:20 | NUR ---
Patient in room PCU 3018M. I have received report from PRACHI Ambrocio and had the opportunity to ask questions and assume patient care. Patient status is comfort care.
[2019-06-09] MEDS: haloperidol lactate 5mg/ml inj IM PRN ×2 (00:28→10:24)
[2019-06-09] MEDS: morphine 10mg/0.5ml (conc. morphine) oral syringe PO PRN (01:17)
[2019-06-09 06:00] VITALS: BP 99/78
--- NOTE | 2019-06-09 06:29 | NUR ---
Problems reprioritized. Patient report given, questions answered & plan of care reviewed with PRACHI De Los Santos.
[2019-06-09] MEDS: lactulose 20gm/30ml cup NG SCH ×2 (08:00→09:21)
[2019-06-09] MEDS: thiamine inj. 100 MG in normal saline 100ml IV soln 100 ML IV SCH (09:21)
[2019-06-09] MEDS ORDERED: lactulose 20gm/30ml cup RC SCH (11:55)
[2019-06-09] MEDS ORDERED: LACT10SO32 RC (12:17)
--- NOTE | 2019-06-09 13:02 | NUR ---
Called Dr Monsalve to ask about ordering anti anxiety medications with discharge due to patient becoming agitated at times. Dr Monsalve stated she won't order antianxiety meds for outpatients. Notified patient's regarding patient becoming agitated at times, she is aware and still wants the patient to come home and she will help take care of him, hoping that when he gets into his own environment he will calm down and cooperate with care.
--- NOTE | 2019-06-09 16:10 | NUR ---
Patient discharged per Dr Monsalve's orders. All discharge instructions were reviewed with patient and with patient's on the phone. All questions were answered. Patient's will make follow up appointment with primary care provider in a week. New prescriptions were called into [facility] pharmacy on [address]. PIV was discontinued, cannula intact. Patient wasn't on tele due to him removing the leads. All belongings were collected and sent with patient. Claus cargo picked patient and patient's belongings up, transferred [facility] slide [facility], claus cargo is transporting patient home to .
[2019-06-10] MEDS ORDERED: LACT10SO PO (13:28)
[2019-06-10] MEDS ORDERED: NO HOME MEDS (13:33)
[2019-06-10] MEDS ORDERED: LORazepam 2 mg/ml vial IV PRN (15:50)
[2019-06-10] MEDS ORDERED: LORazepam 1 MG tablet NG PRN (15:50)
== END 2019-06-09 16:10 | disposition home or self-care (01) | DRG 896 ==
LOC: ER 15:34 → ED HOLD 05-24 12:25 → PCU 3S 05-24 15:30
PROVIDERS: ADMIT Family Medicine; ATTEND Family Medicine
DX: F10.231 Alcohol dependence with withdrawal delirium (principal); E43 Unspecified severe protein-calorie malnutrition; E87.1 Hypo-osmolality and hyponatremia; R45.851 Suicidal ideations; I47.1 Supraventricular tachycardia; E51.2 Wernicke's encephalopathy; I48.0 Paroxysmal atrial fibrillation; R44.1 Visual hallucinations; Y90.7 Blood alcohol level of 200-239 mg/100 ml; I49.9 Cardiac arrhythmia, unspecified; E87.6 Hypokalemia; Z66 Do not resuscitate; Z68.26 Body mass index [BMI] 26.0-26.9, adult
CPT/HCPCS: 36415; 36600; 70544; 70551; 71045; 74018; 76700; 80048; 80053; 80305; 80320; 81003; 82140; 82607; 82803; 82948; 83605; 83735; 84100; 84132; 84443; 84484; 85018; 85025; 86703; 86706; 86803; 87081; 87340; 92508; 92616; 93005; 93308; 97110; 97112; 97116; 97161; 97530; 99285; G0378; J1630; J1650; J2060; J2405; J2543; J3411; J3475; J3490; J7030; J7042

== ENCOUNTER 2019-06-10 11:21 | Inpatient (IN) | payer MEDICARE, OTHER ==
[~2019-06-10] VITALS: Ht 185.4 cm; Wt 90.0 kg
[~2019-06-10 11:21] MED LIST: LACT10SO32 RC
[2019-06-10 12:02] LABS: BASOPHILS # (AUTO) 0.1 X10'3 (0-0.2); BASOPHILS % (AUTO) 0.8 % (0-1); EOSINOPHILS # (AUTO) 0.1 X10'3 (0-0.9); HEMATOCRIT 47.4 % (42.0-52.0); HEMOGLOBIN 16.7 g/dl (14.0-17.9); LYMPHOCYTES # (AUTO) 1.3 X10'3 (1.1-4.8); LYMPHOCYTES % (AUTO) 14.4 % (21-51); MEAN CORPUSCULAR HEMOGLOBIN 34.4 PG (27.0-31.0); MEAN CORPUSCULAR HGB CONC 35.3 g/dL (33.0-36.5); MEAN CORPUSCULAR VOLUME 97.3 FL (78-98); MEAN PLATELET VOLUME 7.3 FL (7.4-10.4); MONOCYTES # (AUTO) 1.2 X10'3 (0-0.9); MONOCYTES % (AUTO) 13.5 % (2-12); NEUTROPHILS # (AUTO) 6.4 X10'3 (1.8-7.7); NEUTROPHILS % (AUTO) 70.3 % (42-75); PLATELET COUNT 321 X10'3 (140-440); RED BLOOD COUNT 4.87 X10'6 (4.70-6.10); RED CELL DISTRIBUTION WIDTH 12.2 % (11.5-14.5); WHITE BLOOD COUNT 9.1 X10'3 (4.5-11.0)
[2019-06-10 12:22] LABS: ALANINE AMINOTRANSFERASE 40 U/L (12-78); ALBUMIN 3.5 G/DL (3.4-5.0); ALBUMIN/GLOBULIN RATIO 0.7 (1.1-1.5); ALKALINE PHOSPHATASE 90 IU/L (46-116); ANION GAP 15 (8-16); ASPARTATE AMINO TRANSFERASE 73 U/L (10-37); BILIRUBIN,TOTAL 2.1 MG/DL (0.1-1.0); BLOOD UREA NITROGEN 16 MG/DL (7-18); BUN/CREATININE RATIO 20.5 (5.4-32.0); CALCIUM 10.1 MG/DL (8.5-10.1); CHLORIDE 103 MMOL/L (99-107); CREATININE 0.78 MG/DL (0.60-1.10); GLUCOSE 127 MG/DL (70-104); POTASSIUM 4.1 MMOL/L (3.5-5.1); SODIUM 142 MMOL/L (135-145); TOTAL CARBON DIOXIDE 24.4 MMOL/L (24-32); TOTAL PROTEIN 8.6 G/DL (6.4-8.2); eGFR > 90 ML/MIN
[2019-06-10 12:24] LABS: AMMONIA < 10 UMOL/L (11-32); LACTIC SEPSIS 1.3 MMOL/L (0.4-2.0)
[2019-06-10 12:39] LABS: PARTIAL THROMBOPLASTIN TIME 27 SECONDS (22-32)
--- NOTE | 2019-06-10 12:47 | NUR ---
Hygiene provided, pt. turned to left side
[2019-06-10 13:06] LABS: CLARITY,URINE CLEAR (Clear); GLUCOSE, URINE 100 mg/dl (Neg); KETONES,URINE 15 mg/dl (Neg); LEUKOCYTE ESTERASE ,URINE NEGATIVE (Neg); NITRITES, URINE POSITIVE (Neg); OCCULT BLOOD,URINE TRACE-LYSED (Neg); PROTEIN,URINE TRACE mg/dl (Neg); UA COLLECTION TYPE FOLEY CATH; UROBILINOGEN,URINE >=8.0 E.U/dL (0.2-1.0)
[2019-06-10 13:07] LABS: COLOR,URINE AMBER (Yellow)
[2019-06-10 13:18] LABS: MUCUS STRANDS MODERATE /LPF (Neg); SQUAMOUS EPITHELIAL CELL,UR FEW /LPF (FEW)
[2019-06-10 13:20] LABS: BACTERIA,URINE 1+ /HPF (Neg); CAL OXALATE CRYSTALS 1+ /HPF (NEGATIVE); WBC CLUMPS,URINE FEW /HPF (NEGATIVE)
[2019-06-10] MEDS ORDERED: diphenhydrAMINE 50 mg/ml inj IV PRN (13:25)
[2019-06-10] MEDS ORDERED: magnesium 4gm in 100ml NS 100 ML IV PRN (13:25)
[2019-06-10] MEDS ORDERED: magnesium 2GM in 50ml NS 50 ML IV PRN (13:25)
[2019-06-10] MEDS ORDERED: diphenhydrAMINE 25mg capsule PO PRN (13:25)
[2019-06-10] MEDS ORDERED: magnesium hydroxide 30ml (MOM) UD suspension PO PRN (13:25)
[2019-06-10] MEDS ORDERED: ondansetron/PF 4mg/2ml inj IV PRN (13:25)
[2019-06-10] MEDS ORDERED: potassium CL 10mEq/100ml bag 100 ML IV PRN ×2 (13:25)
[2019-06-10] MEDS ORDERED: acetaminophen 650mg rectal suppository RC PRN (13:25)
[2019-06-10] MEDS ORDERED: potassium Cl 20 mEq SR tablet PO PRN ×2 (13:25)
[2019-06-10] MEDS ORDERED: magnesium Cl slow-release 64mg tablet PO PRN (13:25)
[2019-06-10] MEDS ORDERED: mag hydrox/Alum hydrox/simeth 30ml oral suspension PO PRN (13:25)
[2019-06-10] MEDS ORDERED: acetaminophen 325mg tablet PO PRN ×2 (13:25)
[2019-06-10] MEDS ORDERED: LACT10SO PO (13:28)
[2019-06-10] MEDS ORDERED: NO HOME MEDS (13:33)
[2019-06-10 16:52] VITALS: BP 148/94
--- NOTE | 2019-06-10 17:30 | NUR ---
patient arrived on unit, orientated to room. But very confused and restless, unable to answer questions. Unable to assess patient due to current patient load and time factor. Staff nurse Blake aware, and instructed to complete two RN skin check and further admit patient.
--- NOTE | 2019-06-10 17:53 | NUR ---
Patient in room BLANK 359. I have received report from Elias VELARDE and had the opportunity to ask questions and assume patient care.
--- NOTE | 2019-06-10 18:05 | NUR ---
Patient in room BLANK 359. I have received report from Jolynn VELARDE and had the opportunity to ask questions and assume patient care.
--- NOTE | 2019-06-10 18:41 | NUR ---
Dr Mckay mckeon called for diet orders and fluid orders. No reply as yet. Report given to Blake VELARDE
[2019-06-10 20:00] VITALS: BP 136/78
[2019-06-10] MEDS ORDERED: temazepam 15mg capsule PO PRN (21:00)
[2019-06-11] VITALS: BP 147/91
--- NOTE | 2019-06-11 06:26 | NUR ---
Problems reprioritized. Patient report given, questions answered & plan of care reviewed with Naheed VELARDE.
--- NOTE | 2019-06-11 06:40 | NUR ---
Patient in room BLANK 359. I have received report from Naheed VELARDE and had the opportunity to ask questions and assume patient care.
[2019-06-11 07:00] VITALS: BP 138/87
--- NOTE | 2019-06-11 07:38 | NUR ---
Patient appears confused, slightly shaky. When I asked him when is the last time he drink alcohol he told me today. Patient admitted to this hospital yesterday. Paged Dr. Ireland to get order for ETOH protocol, diet, and IVF, etc. as this patient do not have these kind of orders yet at this time. Charge nurse Katie whaley
[2019-06-11] MEDS: K and/or MAG REPLACEMENT MC SCH (08:00)
[2019-06-11] MEDS ORDERED: LORazepam 1 MG tablet PO PRN (09:55)
[2019-06-11] MEDS ORDERED: normal saline 1000ml 1,000 ML IV SCH (09:55)
[2019-06-11 11:00] VITALS: BP 133/93
--- NOTE | 2019-06-11 11:50 | NUR ---
Per Dr. Ireland, keep the walker catheter for now
--- NOTE | 2019-06-11 14:53 | NUR ---
Paged Dr. Ireland: Surgical Flr Hermelinda RN ext [phone]. RE: Michael Jimenez. Patient did not ate and will not follow command to swallow. Can we have NPO order as he is not safe to take any PO, ST eval, and change IVF to D5NS?
[2019-06-11] MEDS: LORazepam 2 mg/ml vial IV PRN ×2 (15:01→19:47)
--- NOTE | 2019-06-11 15:04 | NUR ---
Patient was slightly restless, shaking, confused. Ativan 2mg IV given as patient is not safe to take PO Ativan at this time. Charge nurse Katie whaley about this
[2019-06-11] MEDS: dextrose 5%-normal saline 1,000 ML IV SCH (16:06)
[2019-06-11 18:03] LABS: URINE AMPHETAMINE SCREEN NEGATIVE (Neg); URINE BARBITUATE SCREEN NEGATIVE (Neg); URINE BENZODIAZEPINES SCREEN POSITIVE (Neg); URINE CANNABINOID SCREEN NEGATIVE (Neg); URINE COCAINE SCREEN NEGATIVE (Neg); URINE METHADONE SCREEN NEGATIVE (Neg); URINE OPIATE SCREEN POSITIVE (Neg); URINE PHENCYCLIDINE SCREEN NEGATIVE (Neg)
--- NOTE | 2019-06-11 18:55 | NUR ---
Patient in room BLANK 359. I have received report from PRACHI Shen and had the opportunity to ask questions and assume patient care.
--- NOTE | 2019-06-11 19:01 | NUR ---
Problems reprioritized. Patient report given, questions answered & plan of care reviewed with Jorge Alberto VELARDE.
--- NOTE | 2019-06-11 20:00 | NUR ---
Suction is at bedside to help get secretions that patient is unable to excrete himself Addendum: 06/12/19 at 0218 by Jorge Alberto Taveras RN Amended: Links added.
[2019-06-12] MEDS: dextrose 5%-normal saline 1,000 ML IV SCH ×2 (02:41→12:00)
[2019-06-12 04:56] LABS: BASOPHILS # (AUTO) 0.1 X10'3 (0-0.2); BASOPHILS % (AUTO) 0.8 % (0-1); EOSINOPHILS # (AUTO) 0.3 X10'3 (0-0.9); EOSINOPHILS % (AUTO) 2.6 % (0-6); HEMATOCRIT 47.3 % (42.0-52.0); HEMOGLOBIN 15.9 g/dl (14.0-17.9); LYMPHOCYTES # (AUTO) 1.5 X10'3 (1.1-4.8); MEAN CORPUSCULAR HEMOGLOBIN 33.8 PG (27.0-31.0); MEAN CORPUSCULAR HGB CONC 33.6 g/dL (33.0-36.5); MEAN CORPUSCULAR VOLUME 100.5 FL (78-98); MEAN PLATELET VOLUME 7.3 FL (7.4-10.4); MONOCYTES # (AUTO) 1.5 X10'3 (0-0.9); MONOCYTES % (AUTO) 12.6 % (2-12); NEUTROPHILS # (AUTO) 8.3 X10'3 (1.8-7.7); PLATELET COUNT 255 X10'3 (140-440); RED BLOOD COUNT 4.71 X10'6 (4.70-6.10); RED CELL DISTRIBUTION WIDTH 12.6 % (11.5-14.5); WHITE BLOOD COUNT 11.6 X10'3 (4.5-11.0)
[2019-06-12 05:12] LABS: ALANINE AMINOTRANSFERASE 45 U/L (12-78); ALBUMIN/GLOBULIN RATIO 0.6 (1.1-1.5); ALKALINE PHOSPHATASE 84 IU/L (46-116); AMYLASE 22 U/L (25-115); ANION GAP 7 (8-16); ASPARTATE AMINO TRANSFERASE 78 U/L (10-37); BILIRUBIN,TOTAL 1.9 MG/DL (0.1-1.0); CALCIUM 9.5 MG/DL (8.5-10.1); CHLORIDE 112 MMOL/L (99-107); CREATININE 0.71 MG/DL (0.60-1.10); GLUCOSE 143 MG/DL (70-104); LIPASE 84 U/L (73-393); MAGNESIUM 1.8 MG/DL (1.5-2.4); PHOSPHORUS 3.6 MG/DL (2.3-4.5); POTASSIUM 3.9 MMOL/L (3.5-5.1); SODIUM 149 MMOL/L (135-145); TOTAL CARBON DIOXIDE 30.2 MMOL/L (24-32); TOTAL PROTEIN 7.9 G/DL (6.4-8.2); eGFR > 90 ML/MIN
[2019-06-12] MEDS ORDERED: furosemide 40mg/4ml inj IV ONE (05:15)
[2019-06-12 05:19] LABS: BLOOD UREA NITROGEN 14 MG/DL (7-18); BUN/CREATININE RATIO 19.7 (5.4-32.0)
--- NOTE | 2019-06-12 05:56 | NUR ---
0510 went to check on patient and he was coughing and gurgly. He had thick mucous on his pineda. I tried to suction the patients secretions but they were deep in his throat. Patient was tachypneic. Vital signs were taken 143/76, HR:112, RR:28, we were unable to obtain an oxygen saturation. Dr was called. Lasix 40mg IV one time order was given,respiratory order was given respiratory was paged. Dr wanted me to inform patients of his change in condition and he wanted me to mention comfort care to the and put it in place if she agreed. Dr Juarez had talked to her about Comfort care earlier in the day and she was not ready to make a decision at that time. The told me that she feels like we are giving him wrong medications, that we have done something to him to make him decline. She stated; " [facility] She also told me that she does not wish to have him medicated, and so did not want him on comfort care. She said; I am sorry, I am very upset. Then she hung up on me. As respiratory came in e coughed up a bunch of thick brown mucous. The Resp therapist also was able to get some out through suctioning. R.T. did not feel at this time he needed deep suction. He sounded better after the suctioning and his coughing up phlegm episode. We were able to get o2 sat it was 88% RA. We put him on 2l of o2. His breathing is now shallow.
--- NOTE | 2019-06-12 06:13 | NUR ---
Patient in room BLANK 359. I have received report from Jorge Alberto VELARDE and had the opportunity to ask questions and assume patient care.
--- NOTE | 2019-06-12 07:13 | NUR ---
Problems reprioritized. Patient report given, questions answered & plan of care reviewed with PRACHI Neil.
[2019-06-12 07:30] VITALS: BP 147/93
[2019-06-12 08:00] VITALS: BP 147/93
[2019-06-12] MEDS: K and/or MAG REPLACEMENT MC SCH (08:00)
[2019-06-12] MEDS ORDERED: folic acid 1mg tablet PO SCH (08:00)
[2019-06-12] MEDS ORDERED: thiamine 100mg tablet PO SCH (08:00)
[2019-06-12] MEDS ORDERED: multivitamins, therapeutics tablet PO SCH (08:00)
[2019-06-12] MEDS: LORazepam 2 mg/ml vial IV PRN (17:17)
[2019-06-12 18:00] VITALS: BP 145/89
--- NOTE | 2019-06-12 18:44 | NUR ---
Problems reprioritized. Patient report given, questions answered & plan of care reviewed with Jorge Alberto VELARDE.
--- NOTE | 2019-06-12 18:46 | NUR ---
Patient in room BLANK 359. I have received report from PRACHI Neil and had the opportunity to ask questions and assume patient care.
[2019-06-12] MEDS: sennosides/docusate sodium tablet PO SCH (20:00)
[2019-06-12] MEDS: docusate sod 100mg capsule PO SCH (20:00)
--- NOTE | 2019-06-13 01:18 | NUR ---
Patients has not come into see the patient since this admit. She does not want to see the patient in the state he is in. She is available by phone and calls to see how he is doing. Addendum: 06/13/19 at 0120 by Jorge Alberto Taveras RN Amended: Links added.
[2019-06-13] MEDS: LORazepam 2 mg/ml vial IV PRN ×2 (01:55→17:46)
--- NOTE | 2019-06-13 02:10 | NUR ---
Patient is arousing, coughing and sounding gargled. Secretions sounds like they are in his throat. Tried to suction anything that I could reach in his mouth and he was not having it.
--- NOTE | 2019-06-13 04:03 | NUR ---
Patient is communicating at this time. He was yelling out and is a bit confused. I reoriented him and he understood what I was saying, He responded appropriately to what I was saying. He is watching TV in his room. IN no apparent distress.
--- NOTE | 2019-06-13 06:34 | NUR ---
Patient is resting ,is breathing shallow, he is not in any apparent distress. Report was given to PRACHI Hutchinson
[2019-06-13] MEDS: docusate sod 100mg capsule PO SCH ×2 (06:57→19:27)
[2019-06-13] MEDS: sennosides/docusate sodium tablet PO SCH ×2 (06:57→19:28)
[2019-06-13 08:00] VITALS: BP 117/84
--- NOTE | 2019-06-13 18:10 | NUR ---
Patient in room BLANK 359. I have received report from Evangelina VELARDE and had the opportunity to ask questions and assume patient care.
--- NOTE | 2019-06-13 18:19 | NUR ---
Problems reprioritized. Patient report given, questions answered & plan of care reviewed with KYE VELARDE.
[2019-06-13] MEDS: morphine 10mg/ml inj. IV PRN (19:20)
[2019-06-13 20:00] VITALS: BP 131/83
--- NOTE | 2019-06-14 06:22 | NUR ---
Problems reprioritized. Patient report given, questions answered & plan of care reviewed with Evangelina VELARDE.
[2019-06-14] MEDS: docusate sod 100mg capsule PO SCH ×2 (06:38→20:00)
[2019-06-14] MEDS: sennosides/docusate sodium tablet PO SCH ×2 (06:38→20:00)
--- NOTE | 2019-06-14 06:46 | NUR ---
Patient in room BLANK 359. I have received report from lita gamino and had the opportunity to ask questions and assume patient care.
[2019-06-14 07:00] VITALS: BP 131/83
[2019-06-14 11:00] VITALS: BP 110/88
--- NOTE | 2019-06-14 12:45 | NUR ---
Performed nursing bedside swallow test. Pt awake but drowsy, oriented to name only. HOB 90 degrees. Pt slow to swallow when encouraged. Pt able to swallow honey thick and nectar thick liquids but coughing with thin liquid such as water. Advised primary care nurse Evangelina and bedside sitter that nectar thick liquids and soft food diet recommended based on eval. Instructed also to monitor for pocketing of food, this was not visible but possible with is delayed swallowing. Addendum: 06/14/19 at 1248 by Bk Romano RN Amended: Links added.
[2019-06-14] MEDS: LORazepam 2 mg/ml vial IV PRN ×2 (13:06→19:58)
--- NOTE | 2019-06-14 17:17 | NUR ---
Patient is DNR with comfort care, possible discharge home tomorrow with hospice per MD note. Has full liquid diet order with nectar thick liquids. He had nursing bedside swallow PRACHI plascencia noted patient to cough with thin liquids. Addendum: 06/14/19 at [address] Amended: Links added.
--- NOTE | 2019-06-14 18:17 | NUR ---
Problems reprioritized. Patient report given, questions answered & plan of care reviewed with KYE VELARDE.
[2019-06-14 20:00] VITALS: BP 132/74
[2019-06-14] MEDS: morphine 10mg/ml inj. IV PRN (21:11)
[2019-06-15 06:00] VITALS: BP 121/79
--- NOTE | 2019-06-15 06:16 | NUR ---
Problems reprioritized. Patient report given, questions answered & plan of care reviewed with Kim VELARDE.
--- NOTE | 2019-06-15 06:30 | NUR ---
Patient in room BLANK 359. I have received report from Blake and had the opportunity to ask questions and assume patient care.
[2019-06-15] MEDS: sennosides/docusate sodium tablet PO SCH ×3 (08:00→20:00)
[2019-06-15] MEDS: docusate sod 100mg capsule PO SCH ×3 (08:00→20:00)
[2019-06-15] MEDS: morphine 10mg/0.5ml (conc. morphine) oral syringe PO PRN (12:39)
[2019-06-15] MEDS: LORazepam 2 mg/ml vial IV PRN (13:41)
--- NOTE | 2019-06-15 15:38 | NUR ---
F/u: Pt DNR w/ comfort care. No BM yet this admit refusing both routine colace and senna. On full liquids/NTL diet. Will continue to follow per protocol. Addendum: 06/15/19 at [address] Amended: Links added.
--- NOTE | 2019-06-15 17:52 | NUR ---
Blister to coccyx burst. Optifoam changed. Pt has been repositioned in bed using pillows every 2 hours. Sitter at bedside.
[2019-06-15 18:00] VITALS: BP 124/87
--- NOTE | 2019-06-15 18:05 | NUR ---
Received report from PRACHI Daniels. Patient is awake and alert on room air, in no apparent distress. Call light and items of frequent use within reach. Will continue to monitor.
[2019-06-15 19:58] VITALS: BP 124/87
[2019-06-16] MEDS: morphine 10mg/0.5ml (conc. morphine) oral syringe PO PRN (04:18)
[2019-06-16] MEDS: LORazepam 2 mg/ml vial IV PRN (04:19)
--- NOTE | 2019-06-16 04:20 | NUR ---
Patient pulling at catheter, swinging at nursing aid, spat out roxanol, administered ativan.
--- NOTE | 2019-06-16 06:38 | NUR ---
Problems reprioritized. Patient report given, questions answered & plan of care reviewed with PRACHI Shen.
--- NOTE | 2019-06-16 06:40 | NUR ---
Patient in room BLANK 359. I have received report from Jena VELARDE and had the opportunity to ask questions and assume patient care.
[2019-06-16 07:00] VITALS: BP 134/90
--- NOTE | 2019-06-16 07:00 | NUR ---
Sitter present at bedside. Hands off report given to patient. I instructed the sitter that patient will need to be turn every 2 hours and that patient is a feeder. Patient sleeping comfortably at this time, when I asked if he is in patient he said no.
[2019-06-16] MEDS: docusate sod 100mg capsule PO SCH ×2 (07:58→19:28)
[2019-06-16] MEDS: sennosides/docusate sodium tablet PO SCH ×2 (07:58→19:28)
[2019-06-16 11:00] VITALS: BP 139/93
--- NOTE | 2019-06-16 13:31 | NUR ---
Patient still sleepy at this time, will barely open his eyes on command. Patient refused eating or drinking.
--- NOTE | 2019-06-16 14:39 | NUR ---
Patient sleeping comfortably, no signs of pain. Sitter at bedside
[2019-06-16 18:00] VITALS: BP 152/85
--- NOTE | 2019-06-16 18:59 | NUR ---
Problems reprioritized. Patient report given, questions answered & plan of care reviewed with Jorge Alberto VELARDE.
--- NOTE | 2019-06-16 19:20 | NUR ---
Patient is not awake enough to eat his dinner at this time. Addendum: 06/16/19 at 1921 by Jorge Alberto Taveras RN Amended: Links added.
--- NOTE | 2019-06-16 20:00 | NUR ---
1914: Tech reported that patent had a oxygen level of 83%, RA. BP:152/85, RR:26 HR:115. I went to check on Patient and he was resting, he did not appear to be in any distress. I did put him on 2L of oxygen for comfort for the patient. 1999: Patient was repositioned by sitlevi and another tech. He was not in any apparent distress at that time. Sitter sitting at the bedside
--- NOTE | 2019-06-16 21:58 | NUR ---
RN IS TO DOCUMENT YES TO ALL APPLICABLE AREAS Pronouncement of : 1. Time Physician Notified: [id number] 2. Date of :06-16-19 3. Time of : 2104 4. DNR/Withdraw life support documented:DNR comfort care 5. Monitor strip has been placed on chart: Y 6. Assessment process is of one-minute duration and includes following criteria: a) Patient is unresponsive to all stimuli: Y b) Pupils fixed and non-reactive:Y c) Auscultation of precordium reveals absence of heart tones:Y d) Auscultation of lungs reveals absence of breath sounds:Y e) Absence of blood pressure / all vital signs:Y f) QRS complexes are not present on monitor / EKG strip:Y g) Pacer spikes without capture:Y 4. Comments: ECG put on patient was in asystole, Heart beat not heard through stethoscope. Vss absent.Selena Jimenez patients has been notified. Caro Ken has been notified, Donor network notified. Reference#[id number]
--- NOTE | 2019-06-16 23:00 | NUR ---
Pateint was picked up by Caro. Patients belongings were taken with him.
== END 2019-06-16 22:59 | disposition expired | DRG 641 ==
LOC: ER 11:21 → ED HOLD 13:24 → SUR 3N 15:43
PROVIDERS: ADMIT Family Medicine; ATTEND Family Medicine
DX: E51.2 Wernicke's encephalopathy (principal); E46 Unspecified protein-calorie malnutrition; E87.0 Hyperosmolality and hypernatremia; R62.7 Adult failure to thrive; F10.21 Alcohol dependence, in remission; I48.0 Paroxysmal atrial fibrillation; K72.90 Hepatic failure, unspecified without coma; R13.10 Dysphagia, unspecified; Z51.5 Encounter for palliative care; Z66 Do not resuscitate; Z68.26 Body mass index [BMI] 26.0-26.9, adult
CPT/HCPCS: 36415; 71045; 80053; 80305; 80320; 81001; 82140; 82150; 82948; 83605; 83690; 83735; 84100; 84145; 85025; 85610; 85730; 87040; 87081; 87088; 93005; 94760; 97112; 97161; 97530; 99285; G0378; J1940; J2060; J2270; J7030; J7042